=== PATIENT | male | born 1975 | race Caucasian/White ===

== ENCOUNTER 2019-01-10 19:03 | Emergency (ER) | payer OTHER, SELFPAY ==
[2019-01-10 19:09] VITALS: BP 165/91; PULSE 79; RESP 20; TEMP 37.5; O2SAT 97
--- NOTE | 2019-01-10 19:52 | W.ED.GENAD ---
Discharge Plan Disposition Patient Disposition: HOME Condition: Stable Discharge Details Chief Complaint: DentalOral Clinical Impression: Abscess, dental Primary Care Provider: Antonia,Local ED Provider: Chu Jacob Home Meds and New Rx's Prescriptions: New ibuprofen [IBU] 600 mg tablet 600 mg PO QID PRN (Reason: pain) Qty: 20 RF: 0 amoxicillin-pot clavulanate 875-125 mg tablet 1 tab PO BID Qty: 14 RF: 0 Discharge Instructions Instructions: Dental Abscess (ED) Additional Instructions: Return immediately if you have any worsening symptoms, high fevers, significant spread of swelling. Otherwise begin antibiotics first thing tomorrow morning and arrange a dental follow-up preferably in the next week. Discharge Data Discharge Date/Time-TO BE ENTERED AT DEPARTURE: 01/10/19 21:32 Medical Decision Making <Chu Jacob NP - Last Filed: 01/10/19 23:40> Patient presenting to the emergency department for chief complaint of toothache. Patient reports yesterday evening he had a slight toothache on the left lower jaw. But then over the past 24 hours he noticed significant swelling. Patient denies any fever chills, inability to swallow, difficulty breathing. Patient does have significant erythema and tenderness to tooth #18 with obvious swelling to the left lower jaw. There is some fluctuance noted to the area. Ultrasound was utilized to view the concern for abscess and a small abscess was noted. Did discuss with patient risk versus benefit of I&D drainage compared to just starting him on antibiotics. Initially patient stated that he did not want to have needle drainage done in this time and would prefer just anabolic therapy and that he would return for worsening of symptoms. Patient was given Augmentin but I did consult with Dr. Lazcano who is the overnight physician available given my concern of patient's condition worsening in the near term. After thorough discussion with Dr. Lazcano he was willing to have Dr. Lazcano perform needle drainage of the abscess. Please see attached note for the procedure Patient placed on Augmentin for 1 week and prescribed ibuprofen along with given limited supply of narcotic pain medication to go home with this evening. Return precautions were discussed with patient. After discussion of diagnosis and plan of care patient has no further needs, questions, or concerns and states clear understanding to return to the emergency department for any worsening symptoms. <Shayne Lazcano DO - Last Filed: 01/10/19 23:45> Time out was taken to identify the correct patient, procedure, and site. Risks and benefits were discussed with the patient and consent was obtained. Direct pressure was held over the area prior to the procedure to reduce painful injection. 5 cc?s of Lidocaine 1% and Bupivacaine 0.25% was instilled into the left jaw a ramus with a 27 gauge needle.notable analgesia was obtained. The patient tolerated the procedure. There were no complications. Following this an 18-gauge needle was inserted just lateral to the lower left molars and 1-2 cc of purulent material were exuded. Patient tolerated this well. No active bleeding. No signs of airway compromise. HPI <Chu Jacob NP - Last Filed: 01/10/19 23:40> General Mode of arrival: ambulatory. Date/Time Provider Initiated Documentation: 01/10/19 19:16. Limitations to Documentation: no limitations. Information obtained by: patient. History of Present Illness 43 year old M presents to the emergency department with the chief complaint of Dental pain, described as severe, Quality is described as sharp, and is localized to the mouth. and it has been constant. No relieving factors improve symptom(s), Patient notes no other symptoms.. Patient did receive the following treatments prior to arrival, NSAID Related Data Home Medications Medication Instructions Recorded Confirmed amoxicillin-pot clavulanate 1 tab PO BID #14 tab 01/10/19 ibuprofen [IBU] 600 mg PO QID PRN #20 tab 01/10/19 Previous Rx's Medication Instructions Recorded amoxicillin-pot clavulanate 1 tab PO BID #14 tab 01/10/19 ibuprofen [IBU] 600 mg PO QID PRN #20 tab 01/10/19 Allergies Allergy/AdvReac Type Severity Reaction Status Date / Time No Known Allergies Allergy Unverified 01/10/19 19:13 General Stated Complaint: DentalOral WONG: 4 Review of Systems <Chu Jacob NP - Last Filed: 01/10/19 23:40> Constitutional Denies chills and Denies fever(s) ENT Reports as per HPI, Denies change in voice, Reports dental pain, Denies dysphagia, Denies throat swelling and Denies tongue swelling Cardiovascular Denies chest pain and Denies dyspnea Respiratory Denies dyspnea, Denies stridor and Denies wheezing Gastrointestinal Denies abdominal pain, Denies dysphagia, Denies nausea and Denies vomiting Integumentary/Breasts Denies rash Allergic/Immunologic Denies throat swelling, Denies tongue swelling and Denies wheezing PFSH <Chu Jacob NP - Last Filed: 01/10/19 23:40> Surgical History SHOULDER SURGERY Social History Smoking and Tabacco status: Current every day Exam <Chu Jacob NP - Last Filed: 01/10/19 23:40> Const General: cooperative Orientation: alert, awake and oriented x3 Limitations: mental status not altered HENMT Head: normal to inspection, normocephalic, atraumatic and other (Moderate swelling to the left lower jaw that is obviously palpable) Ears: hearing grossly normal bilaterally, normal mastoids bilaterally and no periauricular adenopathy General nose exam: external nose normal Mouth: oropharynx normal, no drooling, no muffled voice, normal tongue and trismus (Mild) Teeth and gingiva: caries and other (Partially fractured tooth #18 base erythema) Throat: posterior oropharynx normal, tonsils normal and uvula midline Eyes General: appearance normal, both eyes and all related structures Pupils: PERRL Neck Neck: normal visual inspection, full ROM, no lymphadenopathy, no meningeal signs, trachea midline, supple, no anterior neck swelling and no midline deformity Resp Effort & Inspection: normal respiratory effort and able to speak in complete sentences Course <Chu Jacob NP - Last Filed: 01/10/19 23:40> Vital Signs Temperature 37.5 C 01/10/19 19:09 Pulse 79 01/10/19 19:09 Respiratory Rate 20 01/10/19 19:09 Blood Pressure 165/91 H 01/10/19 19:09 Pulse Oximetry 97 01/10/19 19:09 Temperature 37.5 C 01/10/19 19:09 Temperature Source Temporal Artery Scan 01/10/19 19:09 Pulse 79 01/10/19 19:09 Respiratory Rate 20 01/10/19 19:09 Respiratory Effort 01/10/19 19:09 Blood Pressure 165/91 H 01/10/19 19:09 Blood Pressure Position Sitting 01/10/19 19:09 Pulse Oximetry 97 01/10/19 19:09 Oxygen Delivery Method Room Air 01/10/19 19:09 Oxygen Flow Rate 0 01/10/19 19:09 Pain Level 10 01/10/19 19:09
--- NOTE | 2019-01-10 19:55 | ED.GENADUL_ITS ---
Discharge Plan Disposition Patient Disposition: HOME Condition: Stable Discharge Details Chief Complaint: DentalOral Clinical Impression: Abscess, dental Primary Care Provider: Antonia,Local ED Provider: Chu Jacob Home Meds and New Rx's Prescriptions: New ibuprofen [IBU] 600 mg tablet 600 mg PO QID PRN (Reason: pain) Qty: 20 RF: 0 amoxicillin-pot clavulanate 875-125 mg tablet 1 tab PO BID Qty: 14 RF: 0 Discharge Instructions Instructions: Dental Abscess (ED) Additional Instructions: Return immediately if you have any worsening symptoms, high fevers, significant spread of swelling. Otherwise begin antibiotics first thing tomorrow morning and arrange a dental follow-up preferably in the next week. Discharge Data Discharge Date/Time-TO BE ENTERED AT DEPARTURE: 01/10/19 21:32 Medical Decision Making <Chu Jacob NP - Last Filed: 01/10/19 23:40> Patient presenting to the emergency department for chief complaint of toothache. Patient reports yesterday evening he had a slight toothache on the left lower jaw. But then over the past 24 hours he noticed significant swelling. Patient denies any fever chills, inability to swallow, difficulty breathing. Patient does have significant erythema and tenderness to tooth #18 with obvious swelling to the left lower jaw. There is some fluctuance noted to the area. Ultrasound was utilized to view the concern for abscess and a small abscess was noted. Did discuss with patient risk versus benefit of I&D drainage compared to just starting him on antibiotics. Initially patient stated that he did not want to have needle drainage done in this time and would prefer just anabolic therapy and that he would return for worsening of symptoms. Patient was given Augmentin but I did consult with Dr. Lazcano who is the overnight physician available given my concern of patient's condition worsening in the near term. After thorough discussion with Dr. Lazcano he was willing to have Dr. Lazcano perform needle drainage of the abscess. Please see attached note for the procedure Patient placed on Augmentin for 1 week and prescribed ibuprofen along with given limited supply of narcotic pain medication to go home with this evening. Return precautions were discussed with patient. After discussion of diagnosis and plan of care patient has no further needs, questions, or concerns and states clear understanding to return to the emergency department for any worsening symptoms. <Shayne Lazcano DO - Last Filed: 01/10/19 23:45> Time out was taken to identify the correct patient, procedure, and site. Risks and benefits were discussed with the patient and consent was obtained. Direct pressure was held over the area prior to the procedure to reduce painful injection. 5 cc?s of Lidocaine 1% and Bupivacaine 0.25% was instilled into the left jaw a ramus with a 27 gauge needle.notable analgesia was obtained. The patient tolerated the procedure. There were no complications. Following this an 18-gauge needle was inserted just lateral to the lower left molars and 1-2 cc of purulent material were exuded. Patient tolerated this well. No active bleeding. No signs of airway compromise. HPI <Chu Jacob NP - Last Filed: 01/10/19 23:40> General Mode of arrival: ambulatory . Date/Time Provider Initiated Documentation: 01/10/19 19:16 . Limitations to Documentation: no limitations . Information obtained by: patient . History of Present Illness 43 year old M presents to the emergency department with the chief complaint of Dental pain, described as severe, Quality is described as sharp, and is localized to the mouth. and it has been constant. No relieving factors improve symptom(s), Patient notes no other symptoms.. Patient did receive the following treatmen ts prior to arrival, NSAID Related Data Home Medications Medication Instructions Recorded Confirmed amoxicillin-pot clavulanate 1 tab PO BID #14 tab 01/10/19 ibuprofen [IBU] 600 mg PO QID PRN #20 tab 01/10/19 Previous Rx's Medication Instructions Recorded amoxicillin-pot clavulanate 1 tab PO BID #14 tab 01/10/19 ibuprofen [IBU] 600 mg PO QID PRN #20 tab 01/10/19 Allergies Allergy/AdvReac Type Severity Reaction Status Date / Time No Known Allergies Allergy Unverified 01/10/19 19:13 General Stated Complaint: DentalOral WONG: 4 Review of Systems <Chu Jacob NP - Last Filed: 01/10/19 23:40> Constitutional Denies chills and Denies fever(s) ENT Reports as per HPI, Denies change in voice, Reports dental pain, Denies dysph agia, Denies throat swelling and Denies tongue swelling Cardiovascular Denies chest pain and Denies dyspnea Respiratory Denies dyspnea, Denies stridor and Denies wheezing Gastrointestinal Denies abdominal pain, Denies dysphagia, Denies nausea and Denies vomiting Integumentary/Breasts Denies rash Allergic/Immunologic Denies throat swelling, Denies tongue swelling and Denies wheezing PFSH <Chu Jacob NP - Last Filed: 01/10/19 23:40> Surgical History SHOULDER SURGERY Social History Smoking and Tabacco status: Current every day Exam <Chu Jacob NP - Last Filed: 01/10/19 23:40> Const General: cooperative Orientation: alert, awake and oriented x3 Limitations: mental status not altered HENMT Head: normal to inspection, normocephalic, atraumatic and other (Moderate swelling to the left lower jaw that is obviously palpable) Ears: hearing grossly normal bilaterally, normal mastoids bilaterally and no periauricular adenopathy General nose exam: external nose normal Mouth: oropharynx normal, no drooling, no muffled voice, normal tongue and trismus (Mild) Teeth and gingiva: caries and other (Partially fractured tooth #18 base er ythema) Throat: posterior oropharynx normal, tonsils normal and uvula midline Eyes General: appearance normal, both eyes and all related structures Pupils: PERRL Neck Neck: normal visual inspection, full ROM, no lymphadenopathy, no meningeal signs, trachea midline, supple, no anterior neck swelling and no midline deformity Resp Effort & Inspection: normal respiratory effort and able to speak in complete sentences Course <Chu Jacob NP - Last Filed: 01/10/19 23:40> Vital Signs Temperature 37.5 C 01/10/19 19:09 Pulse 79 01/10/19 19:09 Respiratory Rate 20 01/10/19 19:09 Blood Pressure 165/91 H 01/10/19 19:09 Pulse Oximetry 97 01/10/19 19:09 Temperature 37.5 C 01/10/19 19:09 Temperature Source Temporal Artery Scan 01/10/19 19:09 Pulse 79 01/10/19 19:09 Respiratory Rate 20 01/10/19 19:09 Respiratory Effort 01/10/19 19:09 Blood Pressure 165/91 H 01/10/19 19:09 Blood Pressure Position Sitting 01/10/19 19:09 Pulse Oximetry 97 01/10/19 19:09 Oxygen Delivery Method Room Air 01/10/19 19:09 Oxygen Flow Rate 0 01/10/19 19:09 Pain Level 10 01/10/19 19:09
[2019-01-10] MEDS: Amoxicillin 875/Clav. 125 TAB PO (19:58)
[2019-01-10] MEDS: Ketorolac 60 MG/2 ML VIAL IM (19:58)
[2019-01-10] MEDS: HYDROcodone 5/Acetaminophen 325 TAB PO ×2 (21:26→21:28)
[2019-01-10] MEDS: Bupivacaine 0.5% Pres-Free 30 ML VIAL (21:29)
[2019-01-10 21:51] VITALS: BP 150/86; PULSE 82; RESP 20; TEMP 37.5; O2SAT 97
== END 2019-01-10 21:32 | disposition home or self-care (01) ==
PROVIDERS: Emergency Provider Nurse Practitioner Family
DX: K04.7 Periapical abscess without sinus (principal)
CPT/HCPCS: 10160; J1885

== ENCOUNTER 2019-01-11 19:03 | Emergency (ER) | payer OTHER, SELFPAY ==
[2019-01-11 19:08] VITALS: BP 141/87; PULSE 77; RESP 16; TEMP 36.6; O2SAT 97
[2019-01-11] MEDS: AMPICILLIN/SULBACTAM 3 GM in Normal Saline 100 ML IVPB (19:47)
[2019-01-11] MEDS: MORPHine 10 MG/ML VIAL 4 MG IVP (19:51)
[2019-01-11 20:00] LABS: Abs Immature Grans 0.02 k/cumm (0.0-0.09); Absolute Basophil Count 0.03 k/cumm (0.0-0.2); Absolute Eosinophil Count 0.13 k/cumm (0.0-0.7); Absolute Lymphocyte Count 3.53 k/cumm (1.2-3.4); Absolute Monocyte Count 0.93 k/cumm (0.11-0.7); Absolute Neutrophil Count 8.63 k/cumm (1.2-6.7); Basophils % 0.2; HCT 44.7 % (40.0-50.0); HGB 14.5 g/dL (13.5-17.5); Immature Grans % 0.2; Lymphocytes % 26.6; Mean Corp. HGB Concentration 32.4 g/dL (32.0-36.0); Mean Corpuscular Hemoglobin 29.1 pg (27.0-33.0); Mean Corpuscular Volume 89.8 fL (80-95); Platelet Count 284 x1000/uL (130-400); RBC 4.98 m/cumm (4.50-6.00); White Blood Cell Count 13.27 k/cumm (4.4-10.8)
[2019-01-11 20:10] LABS: ALT 23 U/L (12-78); AST 20 U/L (15-37); Albumin 3.2 g/dL (3.4-5.0); Alkaline Phosphatase 110 U/L (46-116); Anion Gap 8.4 mmol/L (3-11); BUN 14 mg/dL (7-18); Bilirubin, Total 0.3 mg/dL (0.2-1.0); CO2 30.6 mmol/L (21.0-32.0); CREATININE 1.08 mg/dL (0.70-1.30); Calcium 8.5 mg/dL (8.5-10.1); Chloride 105 mmol/L (98-107); Glucose 93 mg/dL (70-100); Potassium 3.9 mmol/L (3.5-5.1); Sodium 144 mmol/L (136-145); Total Protein 7.8 g/dL (6.4-8.2)
[2019-01-11] MEDS: Omnipaque 350 MG/ML 100 ML BTL IJ (20:21)
[2019-01-11] MEDS: Normal Saline Flush 10 ML SYR IVP (20:22)
[2019-01-11 20:23] VITALS: PULSE 70; RESP 18; TEMP 37.1; O2SAT 100
--- NOTE | 2019-01-11 20:23 | DI.CT_ITS ---
SYMPTOMS/DIAGNOSIS: LEFT JAW PAIN, CONCERN FOR ABSCESS CT SCAN OF THE NECK: CT scan of the neck was performed following the uneventful administration of intravenous contrast material. There is soft tissue swelling seen in the left face and neck overlying the mandible. There is a question of a small fluid collection measuring approximately 1 cm in size lateral to the left mandible best appreciated on the coronal views (series 5, image 10). This may represent a small abscess. Mildly enlarged lymph nodes are seen in the left submandibular region and left neck which are likely reactive. The remaining portions of the nasopharynx, oropharynx, hypopharynx and larynx are unremarkable. The thyroid gland appears grossly unremarkable. There is a mucous retention cyst or polyp in the left maxillary sinus. The remaining visualized paranasal sinuses are clear. The mastoid air cells are well pneumatized. No acute findings are seen in the lung apices. IMPRESSION: Left facial cellulitis. Question of an early 1 cm abscess to the left of the left maxilla. Dental evaluation should be considered.
[2019-01-11] MEDS: HYDROmorphone 2 MG/ML VIAL 0.5 MG IVP ×2 (21:05→21:49)
--- NOTE | 2019-01-11 21:05 | DI.VRAD_ITS ---
EXAM: CT Neck With Contrast EXAM DATE/TIME: 01/11/2019 7:47 PM CLINICAL HISTORY: 43 years old, male; Pain; Other: Left jaw pain; Patient HX: Left jaw pain. Concern for abcess TECHNIQUE: Axial computed tomography images of the neck with intravenous contrast. All CT scans at this facility use at least one of these dose optimization techniques: automated exposure control; mA and/or kV adjustment per patient size (includes targeted exams where dose is matched to clinical indication); or iterative reconstruction. Coronal and sagittal reformatted images were created and reviewed. CONTRAST: 100 ml of omni 350 administered intravenously. COMPARISON: No relevant prior studies available. FINDINGS: Sinuses: mucous retention cyst in the left maxillary sinus. Oropharynx: There is multifocal dental disease. Recommend complete dental evaluation. No significant tonsillar enlargement. Possible small abscess along the lateral aspect of the left mandible best seen on coronal series 5 image 10 measuring approximately 1 cm. Larynx: Normal. Normal epiglottis. Submandibular/Parotid glands: Normal. Glands are normal in size. Thyroid: Normal. No enlarged or calcified nodules. Lymph nodes: Normal. No lymphadenopathy. Lungs: Normal as visualized. Vasculature: No acute findings. Bones/joints: Normal. No acute fracture. Soft tissues: Lower left facial swelling noted with no definite abscess. IMPRESSION: Lower left facial cellulitis with probable early abscess lateral to the the left maxilla. There is multifocal dental disease. Recommend complete dental evaluation. Dictated and Authenticated by: Anny Young MD. Ordering:MIRELA Sage MD
[2019-01-11 21:07] VITALS: PULSE 66; RESP 14; O2SAT 99
[2019-01-11] MEDS: CLINDAMYCIN 900 MG/50 ML BAG 50 MG IVPB (21:49)
--- NOTE | 2019-01-11 21:51 | ED.GENADUL_ITS ---
Discharge Plan Disposition Patient Disposition: HOME Condition: Stable Discharge Details Chief Complaint: Recheck Clinical Impression: Dental abscess Primary Care Provider: Antonia,Local ED Provider: Chu Jacob Home Meds and New Rx's Prescriptions: New clindamycin HCl 150 mg capsule 450 mg PO TID 7 Days Qty: 63 RF: 0 Continued ibuprofen [IBU] 600 mg tablet 600 mg PO QID PRN (Reason: pain) Qty: 20 RF: 0 amoxicillin-pot clavulanate 875-125 mg tablet 1 tab PO BID Qty: 14 RF: 0 Discharge Instructions Instructions: Dental Abscess (ED) Additional Instructions: Return immediately to the emergency department for any worsening symptoms, fever chills, difficulty swallowing, or swelling to your lips tongue or mouth. Otherwise continue to take previously prescribed antibiotic along with your new antibiotic tomorrow morning. Continue to take your medication as prescribed it is strongly encourage that you obtain a dental follow-up within the week for reassessment. You will need to obtain a follow-up appointment with a dentist in the next week. Referrals: Primary Care Provider [Outside] (If you cannot obtain a dental appointment next week please follow-up with a primary care provider for reassessment) Discharge Data Discharge Date/Time-TO BE ENTERED AT DEPARTURE: 01/11/19 22:57 Medical Decision Making Patient representing to the emergency department for chief complaint of recheck of dental swelling. Patient states that symptoms have not improved. Patient was seen in the emergency department yesterday by myself and had I&D drainage of dental abscess done by Dr. Lazcano. Patient states no improvement of symptoms and continued pain and swelling. Patient denies any fever chills, difficulty breathing, inability to swallow, swelling of lips tongue or mouth. Physical exam is still persistent with significant edema and swelling to left lower jaw with erythema surrounding the base of tooth #18 which is partially fractured. No signs of Kameron's angina, significant lymphadenopathy, no airway compromise noted. Given the patient is returning I do feel that labs and CT scan is warranted. Review of labs shows moderate leukocytosis with some evidence of shift otherwise nondiagnostic labs. Pending results patient given Unasyn and morphine. Patient continued to have discomfort was given additional doses of morphine which continued to not relieve discomfort so patient given total of 2 additional doses of 0.5 of hydromorphone which finally did resolve and significantly reduce patient's discomfort. Pending CT imaging patient given dose of clindamycin due to him stating that he would not want to be admitted and would rather continue outpatient therapy. Patient was offered re-exploration and incident incision or drainage or needle exploration to attempt to remove any further purulent drainage that was noted on yesterday's exam but he adamantly refused wanting any further procedure performed. Review of radiological imaging and radiologist interpretation shows no definitive abscess but continued localized swelling and evidence of cellulitic changes. Patient reassessed and states controlled pain. Patient was given IV ketorolac pending discharge along with provided with 3 Percocet after thorough discussion of opiate use and risking along with instructions for patient to not take pain medication before 4 AM due to the significant amount of doses he received in the emergency department. Patient states clear understanding of this and son was also present during this discussion. Patient states clear understanding of risk of narcotic use. Return precautions were thoroughly discussed with patient. Patient was given prescription for clindamycin to add to the Augmentin that he is already on. Patient was informed that he should take probiotics and return precautions were discussed including for severe diarrhea symptoms. Patient strongly encouraged to follow-up with dentist within the next week which he said he would arrange. Patient was given a card for care management to obtain assistance if he has any problems with getting a follow-up appointment. After discussion of diagnosis and plan of care patient has no further needs, questions, or concerns and states clear understanding to return to the emergency department for any worsening symptoms. HPI General Mode of arrival: ambulatory . Date/Time Provider Initiated Documentation: 01/11/19 19:27 . Limitations to Documentation: no limitations . Information obtained by: RN notes reviewed . History of Present Illness 43 year old M presents to the emergency department with the chief complaint of Recheck of dental infection, described as severe and similar to prior episodes, with intensity rated at 9. Quality is described as sharp, and is localized to the face. and it has been constant. No relieving factors improve symptom(s), Patient notes no other symptoms.. Related Data Home Medications Medication Instructions Recorded Confirmed amoxicillin-pot clavulanate 1 tab PO BID #14 tab 01/10/19 01/11/19 ibuprofen [IBU] 600 mg PO QID PRN #20 tab 01/10/19 01/11/19 clindamycin HCl 450 mg PO TID 7 Days #63 cap 01/11/19 Previous Rx's Medication Instructions Recorded amoxicillin-pot clavulanate 1 tab PO BID #14 tab 01/10/19 ibuprofen [IBU] 600 mg PO QID PRN #20 tab 01/10/19 clindamycin HCl 450 mg PO TID 7 Days #63 cap 01/11/19 Allergies Allergy/AdvReac Type Severity Reaction Status Date / Time No Known Allergies Allergy Unverified 01/11/19 19:13 General Stated Complaint: Recheck WONG: 4 Review of Systems Constitutional Denies chills and Denies fever(s) ENT Reports as per HPI, Denies change in voice, Reports dental pain, Denies dysphagia, Denies throat swelling and Denies tongue swelling Cardiovascular Denies chest pain and Denies dyspnea Respiratory Denies dyspnea, Denies stridor and Denies wheezing Gastrointestinal Denies abdominal pain, Denies dysphagia, Denies nausea and Denies vomiting Integumentary/Breasts Denies rash Allergic/Immunologic Denies throat swelling, Denies tongue swelling and Denies wheezing PFS Social History Smoking and Tabacco status: Current every day Exam Const General: cooperative Orientation: alert, awake and oriented x3 Limitations: mental status not altered [facility] Head: normal to inspection, normocephalic, atraumatic and other (Swelling noted to left lower jaw) Ears: hearing grossly normal bilaterally, normal mastoids bilaterally and no periauricular adenopathy General nose exam: external nose normal Mouth: oropharynx normal, no drooling, no muffled voice, normal tongue and trismus (Mild) Teeth and gingiva: caries, poor dentition and other (Partially fractured tooth #18 erythematous base) Throat: posterior oropharynx normal, tonsils normal and uvula midline Eyes General: appearance normal, both eyes and all related structures Pupils: PERRL Neck Neck: normal visual inspection, full ROM, no lymphadenopathy, no meningeal signs, trachea midline, supple, no anterior neck swelling and no midline deformity Resp Effort & Inspection: normal respiratory effort and able to speak in complete sentences Cardio Rate: regular rate Rhythm: regular rhythm Course Vital Signs Temperature 36.6 C 01/11/19 19:08 Pulse 77 01/11/19 19:08 Respiratory Rate 16 01/11/19 19:08 Blood Pressure 141/87 H 01/11/19 19:08 Pulse Oximetry 97 01/11/19 19:08 Temperature 37.1 C 01/11/19 20:23 Temperature Source Temporal Artery Scan 01/11/19 20:23 Pulse 66 01/11/19 21:07 Respiratory Rate 14 01/11/19 21:07 Respiratory Effort Non-Labored 01/11/19 19:11 Blood Pressure 141/87 H 01/11/19 19:08 Blood Pressure Position Sitting 01/11/19 19:08 Pulse Oximetry 99 01/11/19 21:07 Oxygen Delivery Method Room Air 01/11/19 21:07 Oxygen Flow Rate 0 01/11/19 21:07 Pain Level 8 01/11/19 20:23 Lab/Test Results Lab/Test Results: Laboratory Tests Range/Units 01/11/19 01/11/19 19:50 19:50 WBC (4.4-10.8) k/cumm 13.27 H RBC (4.50-6.00) m/cumm 4.98 Hgb (13.5-17.5) g/dL 14.5 Hct (40.0-50.0) % 44.7 MCV (80-95) fL 89.8 MCH (27.0-33.0) pg 29.1 MCHC (32.0-36.0) g/dL 32.4 RDW (11.8-14.1) % 14.0 Plt Count (130-400) x1000/uL 284 MPV (8.0-11.0) fL 9.0 Immature Gran % 0.2 Neutrophils % 65.0 Lymphocytes % 26.6 Monocytes % 7.0 Eosinophils % 1.0 Basophils % 0.2 Absolute Neutrophils (1.2-6.7) k/cumm 8.63 H Absolute Lymphocytes (1.2-3.4) k/cumm 3.53 H Absolute Monocytes (0.11-0.7) k/cumm 0.93 H Absolute Eosinophils (0.0-0.7) k/cumm 0.13 Absolute Basophils (0.0-0.2) k/cumm 0.03 Sodium (136-145) mmol/L 144 Potassium (3.5-5.1) mmol/L 3.9 Chloride (98-107) mmol/L 105 Carbon Dioxide (21.0-32.0) mmol/L 30.6 Anion Gap (3-11) mmol/L 8.4 BUN (7-18) mg/dL 14 Creatinine (0.70-1.30) mg/dL 1.08 Estimated GFR/1.73 m2 (mL/min/1.73m2) >= 60.00 Glucose (70-100) mg/dL 93 Calcium (8.5-10.1) mg/dL 8.5 Total Bilirubin (0.2-1.0) mg/dL 0.3 AST (15-37) U/L 20 ALT (12-78) U/L 23 Alkaline Phosphatase (46-116) U/L 110 Total Protein (6.4-8.2) g/dL 7.8 Albumin (3.4-5.0) g/dL 3.2 L
[2019-01-11] MEDS: Ketorolac 30 MG/ML VIAL IVP (21:54)
[2019-01-11 21:56] VITALS: BP 164/90; PULSE 61; RESP 18; O2SAT 96
[2019-01-11 22:47] VITALS: BP 140/70; PULSE 70; RESP 18; O2SAT 96
[2019-01-11] MEDS: oxyCODONE 5 mg/Acetaminophen 325 mg TAB 3 TAB PO (23:00)
== END 2019-01-11 22:57 | disposition home or self-care (01) ==
PROVIDERS: Emergency Provider Nurse Practitioner Family
DX: K12.2 Cellulitis and abscess of mouth (principal)
CPT/HCPCS: 36415; 70491; 80053; 96365; 96367; 96375; 96376; 99285; 85025; 99284; J0295; J1885; J3490

== ENCOUNTER 2019-08-13 20:09 | Emergency (ER) | payer OTHER, SELFPAY ==
[2019-08-13 20:23] VITALS: BP 165/92; PULSE 101; RESP 16; TEMP 37.2; O2SAT 94
--- NOTE | 2019-08-13 21:12 | W.ED.GENAD ---
Discharge Plan Disposition Patient Disposition: HOME Discharge Details Chief Complaint: DentalOral Clinical Impression: Dental infection, Elevated blood pressure reading, Smoker Primary Care Provider: Julio Chavez ED Provider: Anton Huang Home Meds and New Rx's Prescriptions: New penicillin V potassium 500 mg tablet 500 mg PO QID Qty: 27 RF: 0 Continued ibuprofen [IBU] 600 mg tablet 600 mg PO QID PRN (Reason: pain) Qty: 20 RF: 0 Discharge Instructions Instructions: How to Stop Smoking (ED), Dental Abscess (ED) Additional Instructions: Take penicillin as prescribed. Please follow-up with your dentist. Call tomorrow to arrange timely follow-up. Please follow-up with your primary care physician. Be sure to discuss your elevated blood pressure. Please also discuss smoking cessation. Return to the ER for any worsening or new concerning symptoms. Referrals: Julio Chavez MD [Primary Care Provider] - Medical Decision Making 44-year-old male here with dental pain, suspect infection tooth #17. No fluctuance to warrant incision and drainage. Patient has had a dental infection in this area in the past requiring antibiotics. Plan to treat with penicillin. I offered periapical dental block for pain control and patient refused. Patient was given Tylenol for pain. I discussed with him the absolute need to follow-up with his dentist. He does now plan to follow-up with his dentist as recommended. I also discussed with the patient smoking cessation. He is motivated. He does plan to follow-up with his primary care physician about this. Usual and customary discharge instructions were provided. HPI General Mode of arrival: ambulatory. Date/Time Provider Initiated Documentation: 08/13/19 21:05. Limitations to Documentation: no limitations. Information obtained by: patient. HPI Narrative: 44-year-old male here with dental infection. Patient notes he fractured his left lower molar about 2 weeks ago and today he has developed pain and swelling in the tooth. He is concerned that the tooth may be infected. Symptoms are moderate. No modifiers. No associated fever. Related Data Home Medications Medication Instructions Recorded Confirmed ibuprofen [IBU] 600 mg PO QID PRN #20 tab 01/10/19 08/13/19 penicillin V potassium 500 mg PO QID #27 tab 08/13/19 Previous Rx's Medication Instructions Recorded ibuprofen [IBU] 600 mg PO QID PRN #20 tab 01/10/19 penicillin V potassium 500 mg PO QID #27 tab 08/13/19 Allergies Allergy/AdvReac Type Severity Reaction Status Date / Time No Known Allergies Allergy Unverified 08/13/19 20:25 General Stated Complaint: DentalOral WONG: 4 Review of Systems Constitutional Constitutional: Denies fever(s) ENT Ears, Nose, Mouth, and Throat: Reports as per HPI [facility] Medical History Alcohol abuse (Chronic) Kidney stone (Chronic) Surgical History SHOULDER SURGERY Social History Smoking/Tobacco Use Status: Current every day Drug use: Never Do you feel safe in your relationship?: Yes Exam Const General: cooperative and no acute distress HENMT Head: normocephalic and atraumatic Face and sinus: normal facial exam Mouth: moist mucous membranes Teeth and gingiva: poor dentition (Fracture of tooth #19,18 and 17 appear chronic) and other (Tender gumline adjacent to tooth #17 with no fluctuance) Throat: posterior oropharynx normal Neck Neck: trachea midline and supple Resp Auscultation: clear to auscultation bilaterally, no rales, no rhonchi and no wheezes Cardio Jugular venous pressure: no JVD Rate: regular rate and not tachycardic Rhythm: regular rhythm Course Vital Signs Vital signs: Vital Signs Temperature 37.2 C 08/13/19 20:23 Pulse 101 H 08/13/19 20:23 Respiratory Rate 16 08/13/19 20:23 Blood Pressure 165/92 H 08/13/19 20:23 Pulse Oximetry 94 L 08/13/19 20:23 Temperature 37.2 C 08/13/19 20:23 Temperature Source Skin 08/13/19 20:23 Pulse 101 H 08/13/19 20:23 Respiratory Rate 16 08/13/19 20:23 Respiratory Effort Non-Labored 08/13/19 20:26 Blood Pressure 165/92 H 08/13/19 20:23 Pulse Oximetry 94 L 08/13/19 20:23 Pain Level 6 08/13/19 20:23
[2019-08-13] MEDS: Acetaminophen 325 MG TAB 650 MG PO (21:24)
[2019-08-13] MEDS: Penicillin V POTASSIUM 500 MG TAB PO ×2 (21:25)
== END 2019-08-13 21:30 | disposition home or self-care (01) ==
PROVIDERS: Emergency Provider Student in an Organized Health Care Education/Training Program; PCP General Practice
DX: K04.7 Periapical abscess without sinus (principal); F17.210 Nicotine dependence, cigarettes, uncomplicated; R03.0 Elevated blood-pressure reading, without diagnosis of hypertension
CPT/HCPCS: 99283

== ENCOUNTER 2019-10-15 20:43 | Emergency (ER) | payer OTHER, SELFPAY ==
[2019-10-15 20:48] VITALS: BP 149/75; PULSE 72; RESP 16; TEMP 37.1; O2SAT 98
--- NOTE | 2019-10-15 21:26 | ED.GENADUL_ITS ---
Discharge Plan Disposition Patient Disposition: AGAINST MEDICAL ADVICE Condition: Stable Discharge Details Chief Complaint: Orthopedic Clinical Impression: Finger infection Primary Care Provider: Julio Chavez ED Provider: Radha Huang Home Meds and New Rx's Prescriptions: New cephalexin [Keflex] 500 mg capsule 500 mg PO QID Qty: 40 RF: 0 Continued ibuprofen [IBU] 600 mg tablet 600 mg PO QID PRN (Reason: pain) Qty: 20 RF: 0 Discharge Instructions Instructions: Cephalexin (By mouth) Additional Instructions: You have elected to leave the emergency department AGAINST MEDICAL ADVICE. The risks of doing so are or permanent disability. You may return to the emergency department at any time if you change your mind. Please return immediately to the emergency department he develop any new or worsening symptoms or if you become otherwise concerned. It is extremely important that you follow-up at the orthopedic clinic at 9 AM tomorrow, and that you take your prescribed antibiotics every 6 hours. Stand Alone Forms: Work Release Referrals: South Garcia MD [ [facility] STAFF PHYSICIAN] - Medical Decision Making Diallo Davey is a 44-year-old man with a history of ADHD and kidney stones who presents the emergency department with right index finger pain, redness, swelling, and limited range of motion secondary to pain since yesterday with no known inciting factors. On exam patient is well and nontoxic appearing but does appear uncomfortable. Right index finger erythematous and edematous throughout, held in flexion with severe pain on passive extension, digit is homogenously tender throughout without tenderness of the MCP joint. Concern for possible flexor tenosynovitis. Exam/history is not consistent with sepsis. plan for x- ray, screening labs, Ortho consult, IV cefazolin, IV morphine for pain. I discussed patient with Dr. Garcia of orthopedic surgery, who will admit the patient. After plan for admission, patient stated that he had to leave the emergency department in order to speak with his boss first thing in the morning. He is concerned that he will be fired from his job if he is not present tomorrow a.m. I had a lengthy discussion with the patient regarding risks of leaving at this time AGAINST MEDICAL ADVICE, including or permanent disability. Patient verbalized understanding of the risks and continued to refuse admission. Patient states that he will return to the emergency department as soon as possi ble in the morning to continue his evaluation and treatment. I relayed this information to Dr. Garcia of orthopedics, who requested patient go directly to his outpatient office at 9 AM tomorrow morning, and that the patient be given a prescription for Keflex to take every 6 hours. I discussed this plan with the patient, and reiterated that he may return to the emergency department anytime if he changes his mind, and to return immediately for any worsening symptoms. Patient given 1 take-home dose of Keflex to take at 4 AM. I had a lengthy discussion with the patient regarding return to emergency department precautions, importance of outpatient follow-up tomorrow morning at 9 AM, and home care. Patient verbalized understanding of the plan was amenable. All questions were answered. Patient was discharged home with clear plan for outpatient follow-up. Medical Records Medical records reviewed: Yes I reviewed the patient's medical records. Imaging Data Radiologic Study: Attestation: I personally reviewed and interpreted this imaging study as follows: Radiologist's impression: Exam: XR Right Finger(s) Exam date and time: 10/15/2019 9:25 PM Age: 44 years old Clinical history: Finger(s); Right; Patient HX: Pain, swelling, no trauma TECHNIQUE: Imaging protocol: XR Right fingers. Views: Minimum 2 views. COMPARISON: CR RIGHT HAND COMPLETE 05/25/2018 3:34 AM FINDINGS: Bones/joints: No significant osseous abnormalities identified. Soft tissues: There is soft tissue swelling present about the finger. IMPRESSION: Soft tissue swelling. No significant osseous abnormality is identified. Lab Data Lab results reviewed: Yes I reviewed the patient's lab results. Labs: 10/15/19 21:50 Blood Blood Culture - Pending 10/15/19 21:40 Blood Blood Culture - Pending Laboratory Tests Range/Units 10/15/19 10/15/19 21:40 21:40 WBC (4.4-10.8) k/cumm 13.39 H RBC (4.50-6.00) m/cumm 4.55 Hgb (13.5-17.5) g/dL 13.7 Hct (40.0-50.0) % 41.0 MCV (80-95) fL 90.1 MCH (27.0-33.0) pg 30.1 MCHC (32.0-36.0) g/dL 33.4 RDW (11.8-14.1) % 13.2 Plt Count (130-400) x1000/uL 316 MPV (8.0-11.0) fL 8.8 Immature Gran % 0.3 Neutrophils % 59.5 Lymphocytes % 30.2 Monocytes % 8.0 Eosinophils % 1.6 Basophils % 0.4 Absolute Neutrophils (1.2-6.7) k/cumm 7.97 H Absolute Lymphocytes (1.2-3.4) k/cumm 4.04 H Absolute Monocytes (0.11-0.7) k/cumm 1.07 H Absolute Eosinophils (0.0-0.7) k/cumm 0.21 Absolute Basophils (0.0-0.2) k/cumm 0.05 ESR (0-15) mm/hr 19 H Sodium (136-145) mmol/L 138 Potassium (3.5-5.1) mmol/L 4.3 Chloride (98-107) mmol/L 102 Carbon Dioxide (21.0-32.0) mmol/L 29.1 Anion Gap (3-11) mmol/L 6.9 BUN (7-18) mg/dL 8 Creatinine (0.70-1.30) mg/dL 0.81 Estimated GFR/1.73 m2 (mL/min/1.73m2) >= 60.00 Glucose (74-106) mg/dL 80 Calcium (8.5-10.1) mg/dL 9.1 C-Reactive Protein (0.0-0.3) mg/dL 0.75 H HPI General Mode of arrival: ambulatory . Date/Time Provider Initiated Documentation: 10/15/19 20:56 . Limitations to Documentation: no limitations . Information obtained by: patient, RN notes reviewed and old records reviewed . HPI Narrative: Diallo Davey is a 44-year-old man with a history of kidney stones, ADHD presenting to the emergency department with finger pain. Patient reports that yesterday he noticed that his right index finger was painful with movement, seemed red and swollen. Patient reports that pain swelling and redness have worsened since yesterday. Patient states that he has severe pain with any movement of the finger. No known trauma to the finger. 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 He denies any other pain or injury, denies fevers, denies other rash, denies vomiting, denies diarrhea. Patient reports tetanus within the last 10 years. Never had similar symptoms in the past. Related Data Home Medications Medication Instructions Recorded Confirmed ibuprofen [IBU] 600 mg PO QID PRN #20 tab 01/10/19 10/15/19 cephalexin [Keflex] 500 mg PO QID #40 cap 10/15/19 Previous Rx's Medication Instructions Recorded ibuprofen [IBU] 600 mg PO QID PRN #20 tab 01/10/19 cephalexin [Keflex] 500 mg PO QID #40 cap 10/15/19 Allergies Allergy/AdvReac Type Severity Reaction Status Date / Time No Known Allergies Allergy Unverified 10/15/19 20:50 General Stated Complaint: Orthopedic WONG: 4 Review of Systems Narrative: Constitutional: denies fevers Eyes: denies eye pain ENT: denies facial pain, dental pain, sore throat Cardiovascular: denies chest pain Respiratory: denies SOB, cough GI: denies abdominal pain, vomiting, diarrhea : denies flank pain MSK: denies back pain, neck pain, right index finger painful throughout Skin: denies rash other than redness to right index finger Neuro: denies headaches, numbness, weakness PFSH Medical History Alcohol abuse (Chronic) Kidney stone (Chronic) Social History Smoking/Tobacco Use Status: Current every day Alcohol Intake: never Drug use: Never Do you feel safe at home: Yes Do you feel safe in your relationship?: Yes Exam Narrative Exam Narrative: Constitutional: well and [id number], pleasant, conversing normally HENT: head atraumatic/normocephalic/normal inspection, mucous membranes moist Eyes: conjunctiva normal, sclera normal, pupils 3mm b/l Neck: no stridor, normal ROM, trachea midline Resp: normal work of breathing Cardio: normal rate, normal rhythm Skin: warm, dry, normal color, no rash Neuro: alert, not altered, grossly non-focal, normal tone Ext: Scattered abrasions bilateral hands. Right index finger edematous, erythematous throughout, held in flexion. No tenderness to palpation of the MCP joint, however digit is tender throughout otherwise. Severe pain with attempted passive extension. Full painless range of motion of the other digits the right hand. Radial pulses intact and symmetric. Brisk cap refill and normal sensation of the right index finger. Psych: normal mood, normal affect, normal behavior Course Vital Signs Vital signs: Vital Signs Temperature 37.1 C 10/15/19 20:48 Pulse 72 10/15/19 20:48 Respiratory Rate 16 10/15/19 20:48 Blood Pressure 149/75 H 10/15/19 20:48 Pulse Oximetry 98 10/15/19 20:48 Temperature 37.1 C 10/15/19 20:48 Temperature Source Temporal Artery Scan 10/15/19 20:48 Pulse 72 10/15/19 20:48 Respiratory Rate 16 10/15/19 20:48 Respiratory Effort Non-Labored 10/15/19 20:48 Blood Pressure 149/75 H 10/15/19 20:48 Blood Pressure Position Sitting 10/15/19 20:48 Pulse Oximetry 98 10/15/19 20:48 Oxygen Delivery Method Room Air 10/15/19 20:48 Oxygen Flow Rate 0 10/15/19 20:48 Pain Level 9 10/15/19 20:48
[2019-10-15 21:51] LABS: Abs Immature Grans 0.04 k/cumm (0.0-0.09); Absolute Basophil Count 0.05 k/cumm (0.0-0.2); Absolute Eosinophil Count 0.21 k/cumm (0.0-0.7); Absolute Lymphocyte Count 4.04 k/cumm (1.2-3.4); Absolute Monocyte Count 1.07 k/cumm (0.11-0.7); Absolute Neutrophil Count 7.97 k/cumm (1.2-6.7); Basophils % 0.4; Eosinophils % 1.6; HGB 13.7 g/dL (13.5-17.5); Immature Grans % 0.3; Lymphocytes % 30.2; Mean Corp. HGB Concentration 33.4 g/dL (32.0-36.0); Mean Corpuscular Hemoglobin 30.1 pg (27.0-33.0); Mean Corpuscular Volume 90.1 fL (80-95); Mean Platelet Volume 8.8 fL (8.0-11.0); Neutrophils % 59.5; Platelet Count 316 x1000/uL (130-400); RBC 4.55 m/cumm (4.50-6.00); RBC Distribution Width 13.2 % (11.8-14.1); White Blood Cell Count 13.39 k/cumm (4.4-10.8)
[2019-10-15] MEDS: ceFAZolin 2 GM/50 ML BAG IVPB (21:58)
[2019-10-15 22:02] LABS: Anion Gap 6.9 mmol/L (3-11); BUN 8 mg/dL (7-18); C-Reactive Protein 0.75 mg/dL (0.0-0.3); CO2 29.1 mmol/L (21.0-32.0); CREATININE 0.81 mg/dL (0.70-1.30); Calcium 9.1 mg/dL (8.5-10.1); Chloride 102 mmol/L (98-107); Glucose 80 mg/dL (74-106); Potassium 4.3 mmol/L (3.5-5.1); Sodium 138 mmol/L (136-145)
--- NOTE | 2019-10-15 22:10 | DI.RAD_ITS ---
EXAM: XR FINGER RT INDEX INDICATION: pain, swelling, no trauma. COMPARISON: RIGHT HAND COMPLETE from 05/25/2018 TECHNIQUE: 2D digital imaging was performed. FINDINGS: No bone or joint abnormality is identified. There is soft tissue swelling of the right index finger. No radiopaque foreign bodies are seen in the soft tissues. IMPRESSION: Soft tissue swelling of the right index finger.
[2019-10-15] MEDS: HYDROmorphone 2 MG/ML VIAL 1 MG IVP (22:19)
--- NOTE | 2019-10-15 22:22 | DI.VRAD_ITS ---
PROCEDURE INFORMATION: Exam: XR Right Finger(s) Exam date and time: 10/15/2019 9:25 PM Age: 44 years old Clinical history: Finger(s); Right; Patient HX: Pain, swelling, no trauma TECHNIQUE: Imaging protocol: XR Right fingers. Views: Minimum 2 views. COMPARISON: CR RIGHT HAND COMPLETE 05/25/2018 3:34 AM FINDINGS: Bones/joints: No significant osseous abnormalities identified. Soft tissues: There is soft tissue swelling present about the finger. IMPRESSION: Soft tissue swelling. No significant osseous abnormality is identified. Dictated and Authenticated by: Héctor Nesbitt MD. Ordering:BORA Garcia MD
[2019-10-15 22:36] LABS: ESR 19 mm/hr (0-15)
[2019-10-15 22:52] VITALS: BP 154/93; PULSE 65; RESP 16; TEMP 37.1; O2SAT 95
--- NOTE | 2019-10-15 22:54 | NUR.NOTE ---
Pt states he is unable to stay and be admitted, he needs to go to work and speak to his boss, will be able to come back tomorrow for admission. MD Huang aware, in to speak to pt. IV removed. Discharge instructions reviewed with verbal understanding. aware to f/u with pcp, return for admission at any time.
[2019-10-15] MEDS: Cephalexin 500 MG CAP PO (23:04)
== END 2019-10-15 23:05 | disposition left against medical advice (07) ==
PROVIDERS: Emergency Provider Student in an Organized Health Care Education/Training Program; PCP General Practice
DX: L08.9 Local infection of the skin and subcutaneous tissue, unspecified (principal); Z53.29 Procedure and treatment not carried out because of patient's decision for other reasons
CPT/HCPCS: 36415; 80048; 85652; 87040; 96365; 96375; 99284; 73140; 85025; 86140; J0690

== ENCOUNTER 2019-10-17 13:33 | Inpatient (IN) | payer OTHER, SELFPAY ==
[2019-10-17] VITALS (11 sets, daily range): BP systolic 113–142; BP diastolic 56–95; PULSE 62–85; RESP 12–18; TEMP 36.5–37.2; O2SAT 93–100
[2019-10-17] MEDS: HYDROmorphone 2 MG/ML VIAL 1 MG IVP ×2 (15:04→18:25)
[2019-10-17] MEDS: Ondansetron 4 MG/2 ML VIAL IVP (15:04)
[2019-10-17 15:25] LABS: Abs Immature Grans 0.04 k/cumm (0.0-0.09); Absolute Basophil Count 0.04 k/cumm (0.0-0.2); Absolute Eosinophil Count 0.07 k/cumm (0.0-0.7); Absolute Lymphocyte Count 3.75 k/cumm (1.2-3.4); Absolute Monocyte Count 0.95 k/cumm (0.11-0.7); Basophils % 0.3; Eosinophils % 0.6; HCT 41.4 % (40.0-50.0); HGB 14.1 g/dL (13.5-17.5); Immature Grans % 0.3; Lymphocytes % 30.4; Mean Corp. HGB Concentration 34.1 g/dL (32.0-36.0); Mean Corpuscular Hemoglobin 30.7 pg (27.0-33.0); Mean Corpuscular Volume 90.2 fL (80-95); Mean Platelet Volume 8.8 fL (8.0-11.0); Monocytes % 7.7; Neutrophils % 60.7; Platelet Count 304 x1000/uL (130-400); RBC 4.59 m/cumm (4.50-6.00); RBC Distribution Width 13.6 % (11.8-14.1); White Blood Cell Count 12.32 k/cumm (4.4-10.8)
[2019-10-17 15:28] LABS: Absolute Neutrophil Count 7.48 k/cumm (1.2-6.7)
[2019-10-17 15:35] LABS: C-Reactive Protein 1.48 mg/dL (0.0-0.3)
[2019-10-17] MEDS: HYDROmorphone 2 MG/ML VIAL (15:59)
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
[2019-10-17] MEDS: VANCOMYCIN 1,500 MG in Normal Saline 250 ML 166.6666 MG IVPB (16:32)
[2019-10-17 16:38] LABS: ESR 8 mm/hr (0-15)
[2019-10-17] MEDS: DOXYCYCLINE 100 MG in Normal Saline 100 ML IVPB (17:34)
--- NOTE | 2019-10-17 17:39 | W.ORTHOCONSU ---
Date of service: 10/17/19 Time of Service: 17:39 History of Present Illness Narrative: Chief Complaint: Right index finger pain HPI: 44-year-old male with right index finger pain for approximately 1 week. Unknown exact time or onset. He initially thought his symptoms were related to gout although he does not have a history of gout. He denies any puncture wounds, animal bites, or other trauma to the finger or hand. Denies any needle use. Pain has grown, steadily become more severe sharp with pressure radiating to both sides of the finger and volarly into the palm over the past few days. He has continued to work as a [employer]. He presented to the emergency room 2 days ago when the pain became so severe he could not take it anymore. Unfortunately, he left the emergency room AGAINST MEDICAL ADVICE when the on-call orthopedic surgeon recommended admission for antibiotics and surgical management. He instead went to work on Saturday and has been using Keflex as a PO antibiotic. Now that is the weekend and he does not have work he decided to return to the emergency room as he cannot take the pain any longer. Denies pain in any other parts of the hand or any other digits. prior injury: No attempted treatments: P.o. antibiotics for 36 hours prior imaging: None PMH: Denies diabetes: Denies allergies: NKDA FH: non-contributory SH: hand dominance: Right occupation: [employer] smoke cigarettes: Yes active smoker 1 pack/day Consult Reason Right hand index finger flexor tenosynovitis Assessment and Plan Assessment and plan (1) Suppurative tenosynovitis of flexor tendon of right hand: Status: Acute Assessment and plan: 44-year-old male with right hand index finger flexor tenosynovitis. Unfortunately, this is a chronic FTS infection at this point with a duration approximately 5 to 7 days. May have started as a felon, but has been severe pyogenic flexor tenosynovitis for at least 48 hours. Management is complicated by significant alcohol and smoking/nicotine abuse. As well as patient refusal to accept appropriate management of this problem 2 days ago in the emergency room and instead left AGAINST MEDICAL ADVICE. Although I am not on-call, I can make myself available to manage this orthopedic emergency with surgery tonight. The patient will need to be admitted to the medical hospitalist service for inpatient care and IV antibiotics. I will discuss the case with the admitting hospitalist. Recommend IV antibiotics to include coverage for community-acquired MRSA. No reason to hold antibiotics pending OR as he is already been on antibiotics. Vancomycin may have caused some itching, which is already resolved in the emergency room. May use daptomycin instead. Will obtain operative room cultures. Decision for for emergent operative intervention to include right hand index finger irrigation and debridement. The patient understands he will need to be admitted for at least a few nights postoperatively for IV antibiotics and to monitor clinical improvement. I discussed at length the guarded prognosis for this severe injury given the difficulty treating these injuries acutely and the high complication rates including stiffness and pain. I discussed the possible future need for reoperation as the infection may not be able to be eradicated with one operation due to the chronicity. The remaining risks, benefits, and alternatives were thoroughly discussed. Patient was counseled regarding pain management, expected postoperative course, and recovery timeline. All questions were answered. Informed consent was obtained. Agree and understand treatment plan. Again, all parties are aware that this is a high risk infection that is high risk for complications given the patient's neglect of symptoms for significant amount of time and refusal of prior care. Postoperatively it will be important to prevent contracture and start immediate finger active and passive range of motion as tolerated. Occupational and hand therapy will be ordered. In addition to monitoring the patient's clinical response to surgery antibiotics, we can also repeat inflammatory markers including CBC, ESR, CRP every 48 hours. (2) Felon of finger of right hand: Status: Acute Review of Systems Constitutional Constitutional: Denies chills and Denies fever(s) Eyes Eyes: Denies diplopia and Denies loss of vision ENT Ears, Nose, Mouth, and Throat: Denies dental pain and Denies other (cavities) Cardiovascular Cardiovascular: Denies chest pain with activity, Denies irregular heart rhythm and Denies dyspnea Respiratory Respiratory: Denies cough and Denies dyspnea Gastrointestinal Gastrointestinal: Denies nausea and Denies vomiting Musculoskeletal Musculoskeletal: Reports as per HPI Integumentary/Breasts Skin/Breast: Denies rash and Denies wounds Neurologic Neurologic: Reports as per HPI and Denies loss of vision Psychiatric Psychiatric: Denies anxiety and Denies depression Hematologic/Lymphatic Hematologic/Lymphatic: Denies easy bleeding and Denies easy bruising Allergic/Immunologic Allergic/Immunologic: Reports as per HPI [facility] Medical History Alcohol abuse (Chronic) Kidney stone (Chronic) Surgical History SHOULDER SURGERY Social History Smoking/Tobacco Use Status: Current every day Alcohol Intake: never Drug use: Never Do you feel safe at home: Yes Do you feel safe in your relationship?: Yes Exam Const General: cooperative, uncomfortable and acute distress Orientation: alert, awake and not confused Limitations: mental status not altered and no language barrier Other: Smells of smoke HENMT Head: normocephalic and atraumatic Neck Neck: normal visual inspection and full ROM Resp Effort & Inspection: normal respiratory effort, able to speak in complete sentences, no audible wheezes and no grunting Cardio Other: 2+ radial pulse. Regular rate and rhythm. No peripheral edema except for edema isolated to the right hand index finger. General: deferred Skin Lesions: lesion noted (About the hands from [employer] work per the patient) Rashes: no rashes Neuro General: alert, awake and oriented x3 Cognition: normal cognition Speech: speech normal Extrem Other: Right hand: Moderate fusiform swelling of the right hand index finger. Finger rests in the flexed position. Exquisite tenderness to palpation over the flexor tendon sheath. Significant pain and inability to extend the digit. Significant tenderness dorsally. Discoloration of the nail plate with possible purulence below versus blanching. Sensory status difficult to assess given exquisite pain about all skin surfaces but grossly intact. No other areas in the hand palm dorsally volarly or in any of the other digits with swelling, redness, or tenderness. Demonstrates full painless range of motion of the thumb long finger ring finger small finger and the wrist. Left hand: No abnormalities; full painless range of motion Psych Appearance: grossly normal Mental Status: mental status grossly normal Speech and Movement: speech and movement normal Affect: normal affect Attitude: cooperative Results Last Vital Signs Temp 97.7 F 10/17/19 13:46 Pulse 66 10/17/19 17:08 Resp 18 10/17/19 17:08 BP 126/95 H 10/17/19 17:08 Pulse Ox 96 10/17/19 17:08 Labs Result diagrams: 10/17/19 15:11 Labs: Laboratory Results - last 24 hr 10/17/19 10/17/19 15:11 15:11 WBC 12.32 H RBC 4.59 Hgb 14.1 Hct 41.4 MCV 90.2 MCH 30.7 MCHC 34.1 RDW 13.6 Plt Count 304 MPV 8.8 Immature Gran % 0.3 Neutrophils % 60.7 Lymphocytes % 30.4 Monocytes % 7.7 Eosinophils % 0.6 Basophils % 0.3 Absolute Neutrophils 7.48 H Absolute Lymphocytes 3.75 H Absolute Monocytes 0.95 H Absolute Eosinophils 0.07 Absolute Basophils 0.04 ESR 8 C-Reactive Protein 1.48 H Imaging Additional studies: WBC elevated. CRP elevated and increased compared with prior month to revisit. Cultures obtained from the ER visit 48 hours ago are negative no growth to date. Chart reviewed and summarized as following: Patient with prior visits to the emergency room 2 days ago for similar symptoms. After evaluation, management with admission and likely surgical intervention was recommended. The patient refused and left AGAINST MEDICAL ADVICE.
--- NOTE | 2019-10-17 18:05 | W.PM.OP ---
Date of service: 10/17/19 Time of Service: 19:51 Operative Note Operative Note DATE OF PROCEDURE: 10/17/19 PRE-OP DIAGNOSIS: Right hand index finger pyogenic flexor tenosynovitis Right hand index finger felon POST-OP DIAGNOSIS: same PROCEDURE: 1. Right hand index finger flexor tendon sheath irrigation and debridement of pyogenic flexor tenosynovitis 2. Right hand index finger drainage of complicated abscess, felon 3. Right hand index finger nailbed repair SURGEON: Paolo Naranjo NEWS TECHNICAL DIRECTOR: Sandi Bangura ANESTHESIA: GETSameera ESTIMATED BLOOD LOSS: 10 PATHOLOGY: other (3 sets of wound cultures for Gram stain, anaerobic and aerobic culture.) TOURNIQUET TIME: 31 COMPLICATIONS: None Patient was transported to: PACU Patient's condition: stable Indications: Please see complete medical record for details. Procedure Description: The patient was taken to the operating room and transferred to the operating room table. Anesthesia was induced. All bony prominences were well-padded. Preoperative antibiotics had been administered in the emergency room. The right hand was prepped and draped in the usual sterile fashion. The correct patient, procedure, and side of the procedure were all verified prior to incision. He has marked was tightly wrapped around the distal forearm as a tourniquet. I started with the angiocatheter approach for irrigation debridement of the right hand index finger. A longitudinal incision was made proximal to the right hand index finger A1 javier. Dissection was carried down to the flexor tendons just proximal to the javier. Small amount of purulence was encountered and 1 set of cultures was taken. The flexor tendons were delivered from the room and debrided of adhesion tissue. An angiocatheter was inserted in this position. Next a longitudinal mid axial incision was made just proximal to the DIPJ to gain access to the flexor tendon sheath just distal to the A4 javier. Care was taken to make this incision dorsal to the digital neurovascular structures however they were not directly visualized and they were not directly visualized. More purulence was encountered upon entering the flexor tendon sheath and another set of cultures were taken. Lastly attention was turned to decompressing the felon infection through another mid axial ulnar-sided incision. Significant purulence was drained about the distal phalanx and pulp. And underneath the nailbed. The infection caused a large defect in the nail bed. The nail was partially removed to allow for full exposure. The eponychial fold and will make sure not disturbed. Purulence was removed from about the nailbed. 3 L of normal saline irrigant was used to thoroughly flush all purulence out of the flexor tendon sheath and to grossly irrigate and debride purulence about the distal phalanx. 10 cc of 1% lidocaine with epinephrine and 0.5% bupivacaine were infiltrated about the incisions and medial and laterally to the base of the index finger for postoperative analgesia. The nailbed was repaired using simple interrupted stitches of 6-0 plain gut. The Esmarch tourniquet was let down. Hemostasis was achieved. Strips of Xeroform packing were placed in all 3 incisions. The incisions were loosely approximated using 3-0 and 4-0 nylon to allow for drainage of the significant edema and any remaining infection and to prevent reaccumulation area. The surgical sites were covered with dry gauze in the finger was wrapped in Kerlix that included the hand and wrist to keep the dressing on. Everything was covered in Hakan wrap. The patient awoke from anesthesia without complication and was transferred to recovery room in stable condition. The patient was signed out to the on-call hospitalist.
[2019-10-17] MEDS: Ketorolac 15 MG/ML VIAL IVP (18:26)
[2019-10-17] MEDS: Lactated Ringers 1,000 ML 30 ML IV (18:43)
[2019-10-17] MEDS: Bupivacaine 0.5% Pres-Free 30 ML VIAL (19:33)
--- NOTE | 2019-10-17 20:00 | W.PM.PROGNOT ---
Date of Service Date of service: 10/17/19 Time of Service: 18:00 Assessment and Plan Assessment and plan (1) Felon of finger of right hand: Status: Acute Assessment and plan: as below (2) Suppurative tenosynovitis of flexor tendon of right hand: Status: Acute Assessment and plan: 44M POD#0 s/p Rt hand index finger I&D of chronic infectious flexor tenosynovitis and felon pain control- multimodal strict elevation on pillows while in bed WBAT/ ROM as tolerated Maintain dressings/ re-inforce as needed - some drainage is expected as incisions are loosely approximated Dressing change Friday 10/19 Follow up OR cultures- empiric IV antibiotic coverage for GPC & GNR pending cultures and sensitivities Hand therapy/ OT to restore full passive and active ROM after dressings removed on Saturday and prevent contracture DVT ppx per primary team/ encourage OOB/ ambulate ad barron Discussed the importane of smoking, vaping, and nicotine cessation with the patient Case discussed with admitting hospitalist Will follow along Subjective Subjective Interval history since last seen: No acute events. No new complaints. Resting comfortable in the PACU. Feels much better finger pressure relieved and grateful Exam Const General: cooperative and no acute distress Orientation: alert, awake and not confused Limitations: mental status not altered and no language barrier Resp Effort & Inspection: normal respiratory effort, able to speak in complete sentences, no audible wheezes and no grunting General: deferred Neuro General: alert, awake and oriented x3 Cognition: normal cognition Speech: speech normal Extrem Other: Right hand dressing c/d/i Operative sites about index finger numb from local anesthesia No proximal streaking No pain with ROM of the wrist of other digits Psych Appearance: grossly normal Mental Status: mental status grossly normal Speech and Movement: speech and movement normal Affect: normal affect Attitude: cooperative Objective Objective Clinical Data: Abnormal lab results 10/17/19 10/17/19 Range/Units 15:11 15:11 WBC 12.32 H (4.4-10.8) k/cumm Absolute Neutrophils 7.48 H (1.2-6.7) k/cumm Absolute Lymphocytes 3.75 H (1.2-3.4) k/cumm Absolute Monocytes 0.95 H (0.11-0.7) k/cumm C-Reactive Protein 1.48 H (0.0-0.3) mg/dL Vital Signs Temperature 98.1 F 10/18/19 03:30 Temperature Source Tympanic 10/18/19 03:30 Pulse 74 10/18/19 03:30 Pulse Rhythm Regular 10/17/19 23:45 Respiratory Rate 18 10/18/19 03:30 Respiratory Effort Non-Labored 10/17/19 23:45 Respiratory Depth Normal 10/17/19 23:45 Respiratory Pattern Normal 10/17/19 23:45 Blood Pressure 125/72 10/18/19 03:30 Pulse Oximetry 96 10/18/19 03:30 Respiratory End-tidal CO2 39 10/17/19 20:10 Oxygen Delivery Method Room Air 10/18/19 03:30 Oxygen Flow Rate 0 10/18/19 03:30 Pain Level 9 10/18/19 10:03 Intake & Output 10/17/19 10/17/19 10/18/19 11:59 23:59 11:59 Intake Total 991.517 / 991.517 400 / 400 Output Total 350 / 350 Balance 641.517 / 641.517 400 / 400 Weight 190 lb 0.016 oz Intake: IV 991.517 / 991.517 400 / 400 Output: Urine 350 / 350 Other: Urine Color Dark Sarah Urine Appearance Clear Urine Odor Strong Emesis Description None Voiding Methods Toilet Urinal Laboratory Results WBC 12.32 k/cumm (4.4-10.8) H 10/17/19 15:11 RBC 4.59 m/cumm (4.50-6.00) 10/17/19 15:11 Hgb 14.1 g/dL (13.5-17.5) 10/17/19 15:11 Hct 41.4 % (40.0-50.0) 10/17/19 15:11 MCV 90.2 fL (80-95) 10/17/19 15:11 MCH 30.7 pg (27.0-33.0) 10/17/19 15:11 MCHC 34.1 g/dL (32.0-36.0) 10/17/19 15:11 RDW 13.6 % (11.8-14.1) 10/17/19 15:11 Plt Count 304 x1000/uL (130-400) 10/17/19 15:11 MPV 8.8 fL (8.0-11.0) 10/17/19 15:11 Immature Gran % 0.3 10/17/19 15:11 Neutrophils % 60.7 10/17/19 15:11 Lymphocytes % 30.4 10/17/19 15:11 Monocytes % 7.7 10/17/19 15:11 Eosinophils % 0.6 10/17/19 15:11 Basophils % 0.3 10/17/19 15:11 Absolute Neutrophils 7.48 k/cumm (1.2-6.7) H 10/17/19 15:11 Absolute Lymphocytes 3.75 k/cumm (1.2-3.4) H 10/17/19 15:11 Absolute Monocytes 0.95 k/cumm (0.11-0.7) H 10/17/19 15:11 Absolute Eosinophils 0.07 k/cumm (0.0-0.7) 10/17/19 15:11 Absolute Basophils 0.04 k/cumm (0.0-0.2) 10/17/19 15:11 ESR 8 mm/hr (0-15) 10/17/19 15:11 C-Reactive Protein 1.48 mg/dL (0.0-0.3) H 10/17/19 15:11 Objective Narrative Objective Narrative: Operative gram stain results: Positive for GPC and GNR
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
[2019-10-17] MEDS: CEFEPIME 2 GM in Normal Saline 100 ML IVPB (22:21)
[2019-10-17] MEDS: Ketorolac 30 MG/ML VIAL IVP (23:49)
[2019-10-17] MEDS: Normal Saline Flush 10 ML SYR IVP (23:49)
[2019-10-17] MEDS: Nicotine 21 MG/24 HR PATCH TD (23:50)
[2019-10-17] MEDS: Normal Saline 500 ML IV (23:50)
[2019-10-17] MEDS: LINEZOLID 600 MG/300 ML BAG 300 MG IVPB (23:50)
[2019-10-18 00:02] VITALS: BP 112/68; PULSE 68; RESP 18; TEMP 36.6; O2SAT 98
[2019-10-18] MEDS: Acetaminophen 325 MG TAB 650 MG PO ×3 (00:10→19:21)
[2019-10-18 03:30] VITALS: BP 125/72; PULSE 74; RESP 18; TEMP 36.7; O2SAT 96
[2019-10-18] MEDS: Ketorolac 30 MG/ML VIAL IVP ×3 (06:55→17:52)
[2019-10-18] MEDS: Normal Saline Flush 10 ML SYR IVP ×7 (06:57→22:26)
[2019-10-18 07:18] VITALS: BP 124/76; PULSE 75; RESP 17; TEMP 37.1; O2SAT 96
[2019-10-18] MEDS: CEFEPIME 2 GM in Normal Saline 100 ML IVPB ×3 (07:32→21:54)
[2019-10-18] MEDS: oxyCODONE 5 mg/Acetaminophen 325 mg TAB PO (07:59)
[2019-10-18] MEDS: HYDROmorphone 2 MG/ML VIAL 1 MG IVP ×5 (10:03→22:26)
[2019-10-18] MEDS: Nicotine 21 MG/24 HR PATCH TD ×2 (10:04→14:24)
[2019-10-18] MEDS: LINEZOLID 600 MG/300 ML BAG 300 MG IVPB ×2 (10:04→22:32)
[2019-10-18 11:19] VITALS: BP 181/84; PULSE 84; RESP 17; TEMP 36.7; O2SAT 98
--- NOTE | 2019-10-18 11:22 | PHARADMIT ---
Admission Pharmacy Clinical Review PYOGENIC FLEXOR TENOSYNOVITIS Code Status Full Code Current Weight 86.183 kg Renally Cleared and Narrow Therapeutic Index Meds CRCL 116ML/MIN QTc Value / Action Taken NA BP Control, Fever 125/72 AFEBRILE Electrolytes reviewed NA DVT Prophylaxis NO Opiate Usage / Scheduled Bowel Regimen Ordered PRN/GIBSON Plt/SCr for Heparin / Enoxaparin 304/0.81 INR for Warfarin NA H/H stable, WBC/Bands 14.1/41.4 WBC 12.32 Antibiotic appropriateness LINEZOLID (RXN TO VANCO), CEFEPIME Cultures and Sensitivities CULTURES PENDING Surgical ABX d/c within 24 hr NA DM control / Insulin Dosing NA Heart Failure (Check EF%) (LIV's, B-Block, Diuretics) NA IV to PO Switch IV ABX Home Meds Reviewed OK Home Meds Not Ordered ibuprofen [IBU] 600 mg PO QID PRN # cephalexin [Keflex] 500 mg PO QID # Comments POST OP
[2019-10-18] MEDS: oxyCODONE 5 MG TAB PO ×3 (11:51→20:02)
--- NOTE | 2019-10-18 16:05 | W.PM.PROGNOT ---
Date of Service Date of service: 10/18/19 Time of Service: 16:05 Assessment and Plan Assessment and plan (1) Suppurative tenosynovitis of flexor tendon of right hand: Status: Acute Assessment and plan: Post I&D of right index finger on 10/17. Vancomycin with reaction/allergy during administration in the ED. - Wound culture with growth of GNR & GP Nat. Continue Linezolid and Cefepime, and monitor culture results. - Pain control suboptimal. Will initiate IV Dilaudid for severe pain, in addition to short-term IV Toradol and oral Oxycodone. - Recommendation for strict elevation with rest on pillows while in bed. - Plan on OT Consult per ortho recommendations. (2) DVT prophylaxis: Status: Acute Assessment and plan: SCDs and encourage ambulation. If patient remains in hospital for any additional time consider initiation of chemical DVT Prophylaxis. Subjective Subjective Interval history since last seen: 44-year-old man admitted from [facility] Emergency Department on 10/17 with a diagnosis of right index finger Tenosynovitis. Mr. Davey has a past Medical History significant for ADHD and kidney stones, initially presented to the ED on 10/15 with complaints of pain overlying his right index finger. He was diagnosed with likely infection, and accepted by orthopedic surgery for admission into the hospital. However, the patient refused admission and left AMA at that time. He did however present as an outpatient to the Ortho offices, and began treatment with a course of oral Cephalexin with likelihood for need of surgical debridement. He presented back to the ED with worsening pain, now asked to be admitted by medicine for treatment of a pyogenic flexor Tenosynovitis. Mr. Davey underwent an I&D of the index finger on the night of admission via Ortho, and remains on combination of Linezolid and Cefepime due to Cultures that show growth of GNR and Gram + Nat. His pain is uncontrolled currently. No overnight events reported. Remains afebrile. Exam Narrative Exam Narrative: General: Patient appears uncomfortable secondary to pain, AAOX3, NAD Upper Extremity: Right hand with index finger thickly bandaged, elevated in bed. Not cyanotic. Sensation intact. Psych: Normal mood and affect. Objective Objective Clinical Data: Vital Signs Temperature 36.7 C 10/18/19 11:19 Temperature Source Temporal Artery Scan 10/18/19 11:19 Pulse 84 10/18/19 11:19 Pulse Rhythm Regular 10/18/19 08:30 Respiratory Rate 17 10/18/19 11:19 Respiratory Effort Non-Labored 10/18/19 08:30 Respiratory Depth Normal 10/18/19 08:30 Respiratory Pattern Normal 10/18/19 08:30 Blood Pressure 181/84 H 10/18/19 11:19 Pulse Oximetry 98 10/18/19 11:19 Respiratory End-tidal CO2 39 10/17/19 20:10 Oxygen Delivery Method Room Air 10/18/19 11:19 Oxygen Flow Rate 0 10/18/19 11:19 Pain Level 8 10/18/19 16:01 Intake & Output 10/17/19 10/18/19 10/18/19 23:59 11:59 23:59 Intake Total 991.517 / 991.517 400 / 1916 151 / 1916 Output Total 350 / 350 Balance 641.517 / 641.517 400 / 1916 151 / 1916 Weight 86.183 kg Intake: IV 991.517 / 991.517 400 / 1316 916 / 1316 Oral 600 / 600 Output: Urine 350 / 350 Other: Urine Color Dark Sarah Urine Appearance Clear Urine Odor Strong Comment reports voiding independently without difficulty Emesis Description None Voiding Methods Toilet Urinal Laboratory Results WBC 12.32 k/cumm (4.4-10.8) H 10/17/19 15:11 RBC 4.59 m/cumm (4.50-6.00) 10/17/19 15:11 Hgb 14.1 g/dL (13.5-17.5) 10/17/19 15:11 Hct 41.4 % (40.0-50.0) 10/17/19 15:11 MCV 90.2 fL (80-95) 10/17/19 15:11 MCH 30.7 pg (27.0-33.0) 10/17/19 15:11 MCHC 34.1 g/dL (32.0-36.0) 10/17/19 15:11 RDW 13.6 % (11.8-14.1) 10/17/19 15:11 Plt Count 304 x1000/uL (130-400) 10/17/19 15:11 MPV 8.8 fL (8.0-11.0) 10/17/19 15:11 Immature Gran % 0.3 10/17/19 15:11 Neutrophils % 60.7 10/17/19 15:11 Lymphocytes % 30.4 10/17/19 15:11 Monocytes % 7.7 10/17/19 15:11 Eosinophils % 0.6 10/17/19 15:11 Basophils % 0.3 10/17/19 15:11 Absolute Neutrophils 7.48 k/cumm (1.2-6.7) H 10/17/19 15:11 Absolute Lymphocytes 3.75 k/cumm (1.2-3.4) H 10/17/19 15:11 Absolute Monocytes 0.95 k/cumm (0.11-0.7) H 10/17/19 15:11 Absolute Eosinophils 0.07 k/cumm (0.0-0.7) 10/17/19 15:11 Absolute Basophils 0.04 k/cumm (0.0-0.2) 10/17/19 15:11 ESR 8 mm/hr (0-15) 10/17/19 15:11 C-Reactive Protein 1.48 mg/dL (0.0-0.3) H 10/17/19 15:11
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
[2019-10-18 19:20] VITALS: BP 160/84; PULSE 64; RESP 20; TEMP 36.8; O2SAT 98
[2019-10-18] MEDS: Docusate Sodium 100 MG CAP PO (19:22)
[2019-10-18] MEDS: Senna TAB 2 TAB PO (21:49)
--- NOTE | 2019-10-18 22:48 | NUR.NOTE ---
Nursing Note: Pt been medicated with Dilaudid 1mg IVP, oxycodone, Toradol as scheduled and tylenol but verbalized of no effect. Wants to have Dilaudid dose will be increased. concessions manager notified and contacted applications project manager hospitalist and lola luck for additional pain med. When relayed to pt , he verbalized of I will sign out tonight, stay home on pain. If ever I will go out, nobody will see me Cold pack offered and refused. Continue to redirect pt. Dilaudid 1 mg PRN due at 2230 hrs. and administered that made him calm down a little bit, Linezoid as scheduled infusing. Pt elevating affected arm on pillow and continue talking about pain med. Nursing will monitor closely for any physiologic changes and MD will be posted.
[2019-10-18 23:24] VITALS: BP 160/84; PULSE 60; RESP 19; TEMP 36.8; O2SAT 97
[2019-10-19] MEDS: oxyCODONE 5 MG TAB PO ×6 (00:01→20:27)
[2019-10-19] MEDS: Ketorolac 30 MG/ML VIAL IVP ×5 (00:02→23:38)
[2019-10-19] MEDS: Normal Saline Flush 10 ML SYR IVP ×12 (00:02→23:38)
[2019-10-19 00:05] VITALS: BP 133/83; PULSE 85; RESP 19; TEMP 36.9; O2SAT 97
[2019-10-19] MEDS: HYDROmorphone 2 MG/ML VIAL 1 MG IVP ×8 (01:31→23:39)
[2019-10-19 03:37] VITALS: BP 144/87; PULSE 64; RESP 17; TEMP 36.5; O2SAT 97
[2019-10-19] MEDS: CEFEPIME 2 GM in Normal Saline 100 ML IVPB ×3 (06:45→22:08)
[2019-10-19 06:52] LABS: Abs Immature Grans 0.03 k/cumm (0.0-0.09); Absolute Basophil Count 0.04 k/cumm (0.0-0.2); Absolute Eosinophil Count 0.41 k/cumm (0.0-0.7); Absolute Lymphocyte Count 3.05 k/cumm (1.2-3.4); Absolute Monocyte Count 1.37 k/cumm (0.11-0.7); Absolute Neutrophil Count 5.83 k/cumm (1.2-6.7); Basophils % 0.4; Eosinophils % 3.8; HCT 40.3 % (40.0-50.0); HGB 13.3 g/dL (13.5-17.5); Immature Grans % 0.3; Lymphocytes % 28.4; Mean Corpuscular Hemoglobin 30.2 pg (27.0-33.0); Mean Corpuscular Volume 91.6 fL (80-95); Mean Platelet Volume 9.3 fL (8.0-11.0); Monocytes % 12.8; Neutrophils % 54.3; Platelet Count 281 x1000/uL (130-400); RBC Distribution Width 13.6 % (11.8-14.1); White Blood Cell Count 10.73 k/cumm (4.4-10.8)
[2019-10-19 07:02] LABS: Anion Gap 7.7 mmol/L (3-11); BUN 10 mg/dL (7-18); CO2 27.3 mmol/L (21.0-32.0); CREATININE 0.81 mg/dL (0.70-1.30); Calcium 8.4 mg/dL (8.5-10.1); Chloride 106 mmol/L (98-107); Glucose 87 mg/dL (74-106); Sodium 141 mmol/L (136-145)
[2019-10-19 07:22] VITALS: BP 180/92; PULSE 65; RESP 18; TEMP 36.5; O2SAT 98
[2019-10-19 07:35] LABS: ESR 17 mm/hr (0-15)
[2019-10-19 07:38] LABS: C-Reactive Protein 1.76 mg/dL (0.0-0.3)
--- NOTE | 2019-10-19 09:21 | OT.INNT ---
Date of service: 10/19/19 Time of Service: 09:00 Occupational Therapy Notes 10/19/19 OT consult received and pt's chart was reviewed. Pt was sleeping in bed with hand still in wrapping when OT arrived. Per nursing, MD will be in around noon to unwrap pts hand. OT will attempt to consult with pt tomorrow morning. [facility]
[2019-10-19] MEDS: LINEZOLID 600 MG/300 ML BAG 300 MG IVPB (09:49)
[2019-10-19] MEDS: Lactobacillus Acidophilus CAP 1 CAP PO ×2 (09:50→20:28)
[2019-10-19 11:28] VITALS: BP 177/97; PULSE 62; RESP 17; TEMP 37; O2SAT 98
--- NOTE | 2019-10-19 13:13 | W.PM.PROGNOT ---
Date of Service Date of service: 10/19/19 Time of Service: 13:13 Assessment and Plan Assessment and plan (1) Felon of finger of right hand: Status: Acute Assessment and plan: as below (2) Suppurative tenosynovitis of flexor tendon of right hand: Status: Acute Assessment and plan: 44M POD#2 s/p Rt hand index finger I&D of chronic infectious flexor tenosynovitis and felon pain control improving- multimodal per hospitalist strict elevation on pillows while in bed WBAT/ ROM as tolerated First dressing change done today with wound care Carlos Alberto WESLEY. Dressing to be changed daily starting tomorrow. The patient and his were instructed on dressing change today. This will be reinforced tomorrow. -Remove all bandages and Xeroform. May soak in 50-50 mixture of hydrogen peroxide and normal saline to aid in removal of Xeroform from fingertip. Swirl in 50-50 mixture for 5 to 10 minutes. Allowed to dry or dry with dry gauze prior to replacing Xeroform on the 3 incisions and fingertip, and cover with dry 4 x 4 gauze and wrapped the finger in the hand to secure the dressings with Kerlix. May switch to covering surgical sites with Band-Aids as soon as swelling and drainage allow, probably within 1 week. Follow up OR cultures- empiric IV antibiotic coverage for GPC & GNR pending cultures and sensitivities, which should be back tomorrow Hand therapy/ OT to restore full passive and active ROM as tolerated prevent contracture DVT ppx per primary team/ encourage OOB/ ambulate ad barron Care coordinated with admitting hospitalist Potential discharge tomorrow afternoon pending clinical improvement. Discussed the small, but real chance of requiring a second operation with the patient and the hospitalist for irrigation and debridement as this was again a chronic, severe infection. Subjective Subjective Interval history since last seen: Significant pain at times. Pain is described as definitely different than prior to surgery. It is deftly improved compared with prior to surgery. Pain now is sharp and about the fingertip. Pain before was a tremendous, intense swelling and pressure throughout most of the finger. Exam Const General: cooperative and uncomfortable (Uncomfortable especially with dressing change) Orientation: alert, awake and not confused Limitations: mental status not altered and no language barrier Resp Effort & Inspection: normal respiratory effort, able to speak in complete sentences, no audible wheezes and no grunting General: deferred Neuro General: alert, awake and oriented x3 Cognition: normal cognition Speech: speech normal Extrem Other: Right hand dressing largely c/d/i with mild serosanguineous and a small amount of purulence on the deepest layer of the dressing Operative sites the small openings from packing. Small amount of drainage somewhat purulent present. All packings and dressings removed today after soaking in mixture of saline and peroxide Able to flex and extend the MCP and to a lesser extent the PIP joints without significant pain. Exquisitely tender to palpation about the fingertip and unable to demonstrate DIPJ motion. No proximal streaking No pain with ROM of the wrist of other digits Psych Appearance: grossly normal Mental Status: mental status grossly normal Speech and Movement: speech and movement normal Affect: normal affect Attitude: cooperative Objective Objective Clinical Data: Abnormal lab results 10/19/19 10/19/19 10/19/19 Range/Units 06:20 06:20 06:20 RBC 4.40 L (4.50-6.00) m/cumm Hgb 13.3 L (13.5-17.5) g/dL Absolute Monocytes 1.37 H (0.11-0.7) k/cumm ESR 17 H (0-15) mm/hr Calcium 8.4 L (8.5-10.1) mg/dL C-Reactive Protein 1.76 H (0.0-0.3) mg/dL Vital Signs Temperature 97.7 F 10/19/19 07:22 Temperature Source Tympanic 10/19/19 07:22 Pulse 65 10/19/19 07:22 Pulse Rhythm Regular 10/19/19 10:12 Respiratory Rate 18 10/19/19 07:22 Respiratory Effort Non-Labored 10/19/19 10:12 Respiratory Depth Normal 10/19/19 10:12 Respiratory Pattern Normal 10/19/19 10:12 Blood Pressure 180/92 H 10/19/19 07:22 Pulse Oximetry 98 10/19/19 07:22 Respiratory End-tidal CO2 39 10/17/19 20:10 Oxygen Delivery Method Room Air 10/19/19 07:22 Oxygen Flow Rate 0 10/19/19 07:22 Pain Level 9 10/19/19 11:41 Intake & Output 11/10/19/19 10/19/19 23:59 11:59 23:59 Intake Total 2236 / 2636 300 / 300 Balance 2236 / 2636 300 / 300 Intake: IV 1516 / 1916 100 / 100 Oral 720 / 720 200 / 200 Other: Urine Appearance Clear Comment VOIDS INDEP AND FLUSHES. OOB TO BR AT LEAST 3 TIMES DURING NOC Stool Size Large Stool Characteristics Liquid Voiding Methods Toilet Laboratory Results WBC 10.73 k/cumm (4.4-10.8) 10/19/19 06:20 RBC 4.40 m/cumm (4.50-6.00) L 10/19/19 06:20 Hgb 13.3 g/dL (13.5-17.5) L 10/19/19 06:20 Hct 40.3 % (40.0-50.0) 10/19/19 06:20 MCV 91.6 fL (80-95) 10/19/19 06:20 MCH 30.2 pg (27.0-33.0) 10/19/19 06:20 MCHC 33.0 g/dL (32.0-36.0) 10/19/19 06:20 RDW 13.6 % (11.8-14.1) 10/19/19 06:20 Plt Count 281 x1000/uL (130-400) 10/19/19 06:20 MPV 9.3 fL (8.0-11.0) 10/19/19 06:20 Immature Gran % 0.3 10/19/19 06:20 Neutrophils % 54.3 10/19/19 06:20 Lymphocytes % 28.4 10/19/19 06:20 Monocytes % 12.8 10/19/19 06:20 Eosinophils % 3.8 10/19/19 06:20 Basophils % 0.4 10/19/19 06:20 Absolute Neutrophils 5.83 k/cumm (1.2-6.7) 10/19/19 06:20 Absolute Lymphocytes 3.05 k/cumm (1.2-3.4) 10/19/19 06:20 Absolute Monocytes 1.37 k/cumm (0.11-0.7) H 10/19/19 06:20 Absolute Eosinophils 0.41 k/cumm (0.0-0.7) 10/19/19 06:20 Absolute Basophils 0.04 k/cumm (0.0-0.2) 10/19/19 06:20 ESR 17 mm/hr (0-15) H 10/19/19 06:20 Sodium 141 mmol/L (136-145) 10/19/19 06:20 Potassium 4.0 mmol/L (3.5-5.1) 10/19/19 06:20 Chloride 106 mmol/L (98-107) 10/19/19 06:20 Carbon Dioxide 27.3 mmol/L (21.0-32.0) 10/19/19 06:20 Anion Gap 7.7 mmol/L (3-11) 10/19/19 06:20 BUN 10 mg/dL (7-18) 10/19/19 06:20 Creatinine 0.81 mg/dL (0.70-1.30) 10/19/19 06:20 Estimated GFR/1.73 m2 >= 60.00 (mL/min/1.73m2) 10/19/19 06:20 Glucose 87 mg/dL (74-106) 10/19/19 06:20 Calcium 8.4 mg/dL (8.5-10.1) L 10/19/19 06:20 Magnesium 2.0 mg/dL (1.8-2.4) 10/19/19 06:20 C-Reactive Protein 1.76 mg/dL (0.0-0.3) H 10/19/19 06:20
[2019-10-19] MEDS: Hydrogen Peroxide 3% 480 ML BTL (13:32)
--- NOTE | 2019-10-19 14:31 | PGE_ITS ---
Date of Service Date of service: 10/19/19 Time of Service: 14:31 Assessment and Plan Assessment and plan (1) Suppurative tenosynovitis of flexor tendon of right hand: Status: Acute Assessment and plan: Post I&D of right index finger on 10/17. Vancomycin with reaction/allergy during administration in the ED. - Wound culture with growth of GNR X2 & GP Nat not yet speciated. Continue Linezolid and Cefepime for now, and monitor culture results. - Pain control - continue IV Dilaudid for severe pain, in addition to short-term IV Toradol and oral Oxycodone. - Recommendation for strict elevation with rest on pillows while in bed. Daily dressing change starting tomorrow, per ortho. - Occupational therapy consult placed. (2) DVT prophylaxis: Status: Acute Assessment and plan: SCDs and encourage ambulation. Initiate chemical DVT Prophylaxis with Enoxaparin. Subjective Subjective Interval history since last seen: 44-year-old man admitted from [facility] Emergency Department on 10/17 with a diagnosis of right index finger Tenosynovitis. Mr. Davey has a past Medical History significant for ADHD and kidney stones, initially presented to the ED on 10/15 with complaints of pain overlying his right index finger. He was diagnosed with likely infection, and accepted by orthopedic surgery for admission into the hospital. However, the patient refused admission and left AMA at that time. He did however present as an outpatient to the Ortho offices, and began treatment with a course of oral Cephalexin with likelihood for need of surgical debridement. He presented back to the ED with worsening pain, now asked to be admitted by medicine for treatment of a pyogenic flexor Tenosynovitis. Mr. Davey underwent an I&D of the index finger on the night of admission via Ortho, and remains on combination of Linezolid and Cefepime due to Cultures that show growth of GNR and Gram + Nat. His pain is uncontrolled currently and was significantly worsened overnight, but this morning he reports improvement. No overnight events reported. Remains afebrile. Exam Narrative Exam Narrative: General: Patient appears uncomfortable secondary to pain, AAOX3, NAD Upper Extremity: Right hand with index finger thickly bandaged, elevated in bed. Remains cyanotic. Sensation intact. Psych: Normal mood and affect. Objective Objective Clinical Data: Abnormal lab results 11/10/19/19 10/19/19 Range/Units 06:20 06:20 06:20 RBC 4.40 L (4.50-6.00) m/cumm Hgb 13.3 L (13.5-17.5) g/dL Absolute Monocytes 1.37 H (0.11-0.7) k/cumm ESR 17 H (0-15) mm/hr Calcium 8.4 L (8.5-10.1) mg/dL C-Reactive Protein 1.76 H (0.0-0.3) mg/dL Vital Signs Temperature 37.0 C 10/19/19 11:28 Temperature Source Tympanic 10/19/19 11:28 Pulse 62 10/19/19 11:28 Pulse Rhythm Regular 10/19/19 10:12 Respiratory Rate 17 10/19/19 11:28 Respiratory Effort Non-Labored 10/19/19 10:12 Respiratory Depth Normal 10/19/19 10:12 Respiratory Pattern Normal 10/19/19 10:12 Blood Pressure 177/97 H 10/19/19 11:28 Pulse Oximetry 98 10/19/19 11:28 Respiratory End-tidal CO2 39 10/17/19 20:10 Oxygen Delivery Method Room Air 10/19/19 11:28 Oxygen Flow Rate 0 10/19/19 11:28 Pain Level 9 10/19/19 13:33 Intake & Output 10/18/19 10/19/19 10/19/19 23:59 11:59 23:59 Intake Total 2236 / 2636 720 / 720 Balance 2236 / 2636 720 / 720 Intake: IV 1516 / 1916 400 / 400 Oral 720 / 720 320 / 320 Other: Urine Appearance Clear Comment VOIDS INDEP AND FLUSHES. OOB TO BR AT LEAST 3 TIMES DURING NOC Stool Size Large Stool Characteristics Liquid Voiding Methods Toilet Laboratory Results WBC 10.73 k/cumm (4.4-10.8) 10/19/19 06:20 RBC 4.40 m/cumm (4.50-6.00) L 10/19/19 06:20 Hgb 13.3 g/dL (13.5-17.5) L 10/19/19 06:20 Hct 40.3 % (40.0-50.0) 10/19/19 06:20 MCV 91.6 fL (80-95) 10/19/19 06:20 MCH 30.2 pg (27.0-33.0) 10/19/19 06:20 MCHC 33.0 g/dL (32.0-36.0) 10/19/19 06:20 RDW 13.6 % (11.8-14.1) 10/19/19 06:20 Plt Count 281 x1000/uL (130-400) 10/19/19 06:20 MPV 9.3 fL (8.0-11.0) 10/19/19 06:20 Immature Gran % 0.3 10/19/19 06:20 Neutrophils % 54.3 10/19/19 06:20 Lymphocytes % 28.4 10/19/19 06:20 Monocytes % 12.8 10/19/19 06:20 Eosinophils % 3.8 10/19/19 06:20 Basophils % 0.4 10/19/19 06:20 Absolute Neutrophils 5.83 k/cumm (1.2-6.7) 10/19/19 06:20 Absolute Lymphocytes 3.05 k/cumm (1.2-3.4) 10/19/19 06:20 Absolute Monocytes 1.37 k/cumm (0.11-0.7) H 10/19/19 06:20 Absolute Eosinophils 0.41 k/cumm (0.0-0.7) 10/19/19 06:20 Absolute Basophils 0.04 k/cumm (0.0-0.2) 10/19/19 06:20 ESR 17 mm/hr (0-15) H 10/19/19 06:20 Sodium 141 mmol/L (136-145) 10/19/19 06:20 Potassium 4.0 mmol/L (3.5-5.1) 10/19/19 06:20 Chloride 106 mmol/L (98-107) 10/19/19 06:20 Carbon Dioxide 27.3 mmol/L (21.0-32.0) 10/19/19 06:20 Anion Gap 7.7 mmol/L (3-11) 10/19/19 06:20 BUN 10 mg/dL (7-18) 10/19/19 06:20 Creatinine 0.81 mg/dL (0.70-1.30) 10/19/19 06:20 Estimated GFR/1.73 m2 >= 60.00 (mL/min/1.73m2) 10/19/19 06:20 Glucose 87 mg/dL (74-106) 10/19/19 06:20 Calcium 8.4 mg/dL (8.5-10.1) L 10/19/19 06:20 Magnesium 2.0 mg/dL (1.8-2.4) 10/19/19 06:20 C-Reactive Protein 1.76 mg/dL (0.0-0.3) H 10/19/19 06:20
--- NOTE | 2019-10-19 14:45 | PGE_ITS ---
Assessment and Plan Assessment and plan (1) Suppurative tenosynovitis of flexor tendon of right hand: Status: Acute Assessment and plan: Post I&D of right index finger on 10/17. Vancomycin with reaction/allergy during administration in the ED. - Wound culture with growth of GNR & GP Nat. Continue Linezolid and Cefepime, and monitor culture results. - Pain control suboptimal. Will initiate IV Dilaudid for severe pain, in addition to short-term IV Toradol and oral Oxycodone. - Recommendation for strict elevation with rest on pillows while in bed. - Plan on OT Consult per ortho recommendations. (2) DVT prophylaxis: Status: Acute Assessment and plan: SCDs and encourage ambulation. If patient remains in hospital for any additional time consider initiation of chemical DVT Prophylaxis. Subjective Subjective Interval history since last seen: 44-year-old man admitted from [facility] Emergency Department on 10/17 with a diagnosis of right index finger Tenosynovitis. Mr. Davey has a past Medical History significant for ADHD and kidney stones, initially presented to the ED on 10/15 with complaints of pain overlying his right index finger. He was diagnosed with likely infection, and accepted by orthopedic surgery for admission into the hospital. However, the patient refused admission and left AMA at that time. He did however present as an outpatient to the Ortho offices, and began treatment with a course of oral Cephalexin with li kelihood for need of surgical debridement. He presented back to the ED with worsening pain, now asked to be admitted by medicine for treatment of a pyogenic flexor Tenosynovitis. Mr. Davey underwent an I&D of the index finger on the night of admission via Ortho, and remains on combination of Linezolid and Cefepime due to Cultures that show growth of GNR and Gram + Nat. His pain is uncontrolled currently. No overnight events reported. Remains afebrile. Exam Narrative Exam Narrative: General: Patient appears uncomfortable secondary to pain, AAOX3, NAD Upper Extremity: Right hand with index finger thickly bandaged, elevated in bed. Not cyanotic. Sensation intact. Psych: Normal mood and affect. Objective Objective Clinical Data: Abnormal lab results 10/19/19 10/19/19 10/19/19 Range/Units 06:20 06:20 06:20 RBC 4.40 L (4.50-6.00) m/cumm Hgb 13.3 L (13.5-17.5) g/dL Absolute Monocytes 1.37 H (0.11-0.7) k/cumm ESR 17 H (0-15) mm/hr Calcium 8.4 L (8.5-10.1) mg/dL C-Reactive Protein 1.76 H (0.0-0.3) mg/dL Vital Signs Temperature 37.0 C 10/19/19 11:28 Temperature Source Tympanic 10/19/19 11:28 Pulse 62 10/19/19 11:28 Pulse Rhythm Regular 10/19/19 10:12 Respiratory Rate 17 10/19/19 11:28 Respiratory Effort Non-Labored 10/19/19 10:12 Respiratory Depth Normal 10/19/19 10:12 Respiratory Pattern Normal 10/19/19 10:12 Blood Pressure 177/97 H 10/19/19 11:28 Pulse Oximetry 98 10/19/19 11:28 Respiratory End-tidal CO2 39 10/17/19 20:10 Oxygen Delivery Method Room Air 10/19/19 11:28 Oxygen Flow Rate 0 10/19/19 11:28 Pain Level 9 10/19/19 13:33 Intake & Output 10/18/19 10/19/19 10/19/19 23:59 11:59 23:59 Intake Total 2236 / 2636 720 / 720 Balance 2236 / 2636 720 / 720 Intake: IV 1516 / 1916 400 / 400 Oral 720 / 720 320 / 320 Other: Urine Appearance Clear Comment VOIDS INDEP AND FLUSHES. OOB TO BR AT LEAST 3 TIMES DURING NOC Stool Size Large Stool Characteristics Liquid Voiding Methods Toilet Laboratory Results WBC 10.73 k/cumm (4.4-10.8) 10/19/19 06:20 RBC 4.40 m/cumm (4.50-6.00) L 10/19/19 06:20 Hgb 13.3 g/dL (13.5-17.5) L 10/19/19 06:20 Hct 40.3 % (40.0-50.0) 10/19/19 06:20 MCV 91.6 fL (80-95) 10/19/19 06:20 MCH 30.2 pg (27.0-33.0) 10/19/19 06:20 MCHC 33.0 g/dL (32.0-36.0) 10/19/19 06:20 RDW 13.6 % (11.8-14.1) 10/19/19 06:20 Plt Count 281 x1000/uL (130-400) 10/19/19 06:20 MPV 9.3 fL (8.0-11.0) 10/19/19 06:20 Immature Gran % 0.3 10/19/19 06:20 Neutrophils % 54.3 10/19/19 06:20 Lymphocytes % 28.4 10/19/19 06:20 Monocytes % 12.8 10/19/19 06:20 Eosinophils % 3.8 10/19/19 06:20 Basophils % 0.4 10/19/19 06:20 Absolute Neutrophils 5.83 k/cumm (1.2-6.7) 10/19/19 06:20 Absolute Lymphocytes 3.05 k/cumm (1.2-3.4) 10/19/19 06:20 Absolute Monocytes 1.37 k/cumm (0.11-0.7) H 10/19/19 06:20 Absolute Eosinophils 0.41 k/cumm (0.0-0.7) 10/19/19 06:20 Absolute Basophils 0.04 k/cumm (0.0-0.2) 10/19/19 06:20 ESR 17 mm/hr (0-15) H 10/19/19 06:20 Sodium 141 mmol/L (136-145) 10/19/19 06:20 Potassium 4.0 mmol/L (3.5-5.1) 10/19/19 06:20 Chloride 106 mmol/L (98-107) 10/19/19 06:20 Carbon Dioxide 27.3 mmol/L (21.0-32.0) 10/19/19 06:20 Anion Gap 7.7 mmol/L (3-11) 10/19/19 06:20 BUN 10 mg/dL (7-18) 10/19/19 06:20 Creatinine 0.81 mg/dL (0.70-1.30) 10/19/19 06:20 Estimated GFR/1.73 m2 >= 60.00 (mL/min/1.73m2) 10/19/19 06:20 Glucose 87 mg/dL (74-106) 10/19/19 06:20 Calcium 8.4 mg/dL (8.5-10.1) L 10/19/19 06:20 Magnesium 2.0 mg/dL (1.8-2.4) 10/19/19 06:20 C-Reactive Protein 1.76 mg/dL (0.0-0.3) H 10/19/19 06:20
--- NOTE | 2019-10-19 15:04 | CHAPLAIN ---
Diallo was pleasant but was not interested in further conversation after I introduced myself and explained my role.
[2019-10-19 15:15] VITALS: BP 164/91; PULSE 61; RESP 16; TEMP 36.6; O2SAT 95
--- NOTE | 2019-10-19 17:36 | CMPROGNOTE_ITS ---
- If Service Date Differs Date of service: 10/19/19 Time of Service: 17:36 Care Management Progress Note S/O: Diallo was sitting up in bed when CM came to meet with him. He was very quiet and it difficult to engage him in conversation or make eye contact with him. Diallo stated he is in a lot of pain and that he is sick of it. He shared that he has been dealing with his infected finger for about a week. A: Diallo is a 44 year old man admitted to [facility] on 10/17/19 with tenosynovitis. P:Anticipate Diallo will return home with no additional services once medically cleared, unless technician terminal and repeater antibiotic therapy is needed.. He will have follow up appointments, as recommended. His will drive him home via private vehicle. CM will continue to follow.
[2019-10-19 20:03] VITALS: BP 153/82; PULSE 74; RESP 18; TEMP 36.4; O2SAT 97
[2019-10-19] MEDS: Nicotine 21 MG/24 HR PATCH TD (20:27)
[2019-10-19] MEDS: Acetaminophen 325 MG TAB 650 MG PO (22:08)
[2019-10-19] MEDS: LINEZOLID 600 MG/300 ML BAG IVPB (23:39)
[2019-10-20 00:05] VITALS: BP 137/66; PULSE 80; RESP 18; TEMP 36.4; O2SAT 97
[2019-10-20] MEDS: oxyCODONE 5 MG TAB PO ×4 (00:28→11:34)
[2019-10-20] MEDS: HYDROmorphone 2 MG/ML VIAL 1 MG IVP ×3 (02:30→09:43)
[2019-10-20 03:47] VITALS: BP 144/78; PULSE 64; RESP 18; TEMP 36.3; O2SAT 99
[2019-10-20] MEDS: Acetaminophen 325 MG TAB 650 MG PO ×2 (04:25→07:51)
[2019-10-20] MEDS: Normal Saline 500 ML 150 ML IV (05:56)
[2019-10-20] MEDS: Ketorolac 30 MG/ML VIAL IVP ×2 (05:56→11:35)
[2019-10-20] MEDS: CEFEPIME 2 GM in Normal Saline 100 ML IVPB (05:56)
[2019-10-20] MEDS: Normal Saline Flush 10 ML SYR IVP ×3 (05:57→11:35)
[2019-10-20 07:14] LABS: Abs Immature Grans 0.03 k/cumm (0.0-0.09); Absolute Basophil Count 0.05 k/cumm (0.0-0.2); Absolute Lymphocyte Count 4.18 k/cumm (1.2-3.4); Absolute Neutrophil Count 5.78 k/cumm (1.2-6.7); Basophils % 0.4; Eosinophils % 3.5; HCT 40.7 % (40.0-50.0); HGB 12.9 g/dL (13.5-17.5); Immature Grans % 0.3; Lymphocytes % 36.1; Mean Corp. HGB Concentration 31.7 g/dL (32.0-36.0); Mean Corpuscular Hemoglobin 29.1 pg (27.0-33.0); Mean Corpuscular Volume 91.9 fL (80-95); Mean Platelet Volume 9.1 fL (8.0-11.0); Monocytes % 9.8; Neutrophils % 49.9; Platelet Count 285 x1000/uL (130-400); RBC 4.43 m/cumm (4.50-6.00); RBC Distribution Width 13.7 % (11.8-14.1); White Blood Cell Count 11.58 k/cumm (4.4-10.8)
[2019-10-20 07:20] LABS: Anion Gap 10.5 mmol/L (3-11); BUN 13 mg/dL (7-18); CO2 23.5 mmol/L (21.0-32.0); CREATININE 0.87 mg/dL (0.70-1.30); Calcium 8.2 mg/dL (8.5-10.1); Chloride 107 mmol/L (98-107); Glucose 136 mg/dL (74-106); Magnesium 1.9 mg/dL (1.8-2.4); Potassium 3.2 mmol/L (3.5-5.1); Sodium 141 mmol/L (136-145)
[2019-10-20 07:21] LABS: Absolute Eosinophil Count 0.41 k/cumm (0.0-0.7); Absolute Monocyte Count 1.13 k/cumm (0.11-0.7)
[2019-10-20] MEDS: Lactobacillus Acidophilus CAP 1 CAP PO (07:49)
[2019-10-20] MEDS: Enoxaparin 40 MG/0.4 ML SYR SC (07:51)
[2019-10-20 07:52] VITALS: BP 136/81; PULSE 62; RESP 17; TEMP 37.1; O2SAT 97
[2019-10-20] MEDS: LINEZOLID 600 MG/300 ML BAG IVPB (09:43)
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
[2019-10-20] MEDS: Magnesium Oxide 400 MG TAB PO (11:17)
[2019-10-20] MEDS: Potassium Chloride 20 MEQ TABCR 40 MEQ PO (11:17)
[2019-10-20 12:15] VITALS: BP 150/76; PULSE 64; RESP 17; TEMP 36.7; O2SAT 97
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
--- NOTE | 2019-10-20 16:46 | PDOC.CMDIS ---
- If Service Date Differs Date of service: 10/20/19 Time of Service: 16:46 LACE Index Scoring Tool - Questions: Length of Stay (in days): 3 Acuity (Admit via E.D.?): Yes E.D. Visits: 5 - Answers: Total Score: 10 Risk of Readmission: High Risk Care Management Discharge Reason for Hospitalization: Suppurative tenosynovitis of flexor tendon of right hand Discharge Plan: Diallo will be discharged home with no new services. He will follow up with his surgeon and discharge plan of care. Diallo will transport via private vehicle with family. Patient/Family Education Needs: Discharge plan, limitations, follow up plan and Ask Me Three.
--- NOTE | 2019-10-20 17:04 | PGE_ITS ---
Date of Service Date of service: 10/20/19 Time of Service: 13:00 Assessment and Plan Assessment and plan (1) Felon of finger of right hand: Status: Acute Assessment and plan: as below (2) Suppurative tenosynovitis of flexor tendon of right hand: Status: Acute Assessment and plan: 44M POD#3 s/p Rt hand index finger I&D of chronic infectious flexor tenosynovitis and felon pain control improving- multimodal, wean narcotics strict elevation on pillows while in bed WBAT/ ROM as tolerated Dressing change done again today with Carlos Alberto WESLEY. Daily home dressing changes starting tomorrow. The patient and his were instructed on dressing change again today today. -Remove all bandages and Xeroform. May soak in 50-50 mixture of hydrogen peroxide and normal saline to aid in removal of Xeroform from fingertip. Swirl in 50-50 mixture for 5 to 10 minutes. Allowed to dry or dry with dry gauze prior to replacing Xeroform on the 3 incisions and fingertip, and cover with dry 4 x 4 gauze and wrapped the finger in the hand to secure the dressings with Kerlix. May switch to covering surgical sites with Band-Aids as soon as swelling and drainage allow, probably within 1 week. Transition to oral antibiotics as per sensitivity results which are mostly back today. Ciprofloxacin and doxycycline recommended by [facility] ID to Dr. Lora. Will need to check final tetracycline sensitivities. Hand therapy/ OT to restore full passive and active ROM as tolerated prevent c ontracture DVT ppx per primary team/ encourage OOB/ ambulate ad barron Care coordinated with admitting hospitalist. Patient is greatly improved today. Recommend discharge home on 1 week of oral antibiotics. I will see him in the office in 1 week for clinical reevaluation. Follow-up appointment arranged. Subjective Subjective Interval history since last seen: Significant pain at times but improved greatly since yesterday. Pain is localized to the fingertip. Demonstrates much better motion of the MCP, PIP and even DIPJ without any discomfort. Looks and feels better. Exam Const General: cooperative and comfortable (Only mildly uncomfortable with dressing change) Orientation: alert, awake and not confused Limitations: mental status not altered and no language barrier Resp Effort & Inspection: normal respiratory effort, able to speak in complete sentences, no audible wheezes and no grunting General: deferred Neuro General: alert, awake and oriented x3 Cognition: normal cognition Speech: speech normal Extrem Other: Right hand dressing largely c/d/i with minimal serosanguineous drainage. No purulence. No erythema about the incisions. Swelling greatly reduced. Operative sites the small openings from packing. Largely dry. Finger soaked in hydroperoxide normal saline mixture. Normal discomfort. Able to flex and extend the MCP, PIPJ, DIPJ to a very good extent. Tender to palpation about the fingertip still. No other areas of discomfort really. No proximal streaking No pain with ROM of the wrist of other digits Psych Appearance: grossly normal Mental Status: mental status grossly normal Speech and Movement: speech and movement normal Affect: normal affect Attitude: cooperative Objective Objective Clinical Data: Abnormal lab results 10/20/19 10/20/19 Range/Units 06:55 06:55 WBC 11.58 H (4.4-10.8) k/cumm RBC 4.43 L (4.50-6.00) m/cumm Hgb 12.9 L (13.5-17.5) g/dL MCHC 31.7 L (32.0-36.0) g/dL Absolute Lymphocytes 4.18 H (1.2-3.4) k/cumm Absolute Monocytes 1.13 H (0.11-0.7) k/cumm Potassium 3.2 L (3.5-5.1) mmol/L Glucose 136 H (74-106) mg/dL Calcium 8.2 L (8.5-10.1) mg/dL Vital Signs Temperature 98.1 F 10/20/19 12:15 Temperature Source Tympanic 10/20/19 12:15 Pulse 64 10/20/19 12:15 Pulse Rhythm Regular 10/20/19 04:58 Respiratory Rate 17 10/20/19 12:15 Respiratory Effort Non-Labored 10/20/19 10:46 Respiratory Depth Normal 10/20/19 10:46 Respiratory Pattern Normal 10/20/19 10:46 Blood Pressure 150/76 H 10/20/19 12:15 Pulse Oximetry 97 10/20/19 12:15 Respiratory End-tidal CO2 39 10/17/19 20:10 Oxygen Delivery Method Room Air 10/20/19 12:15 Oxygen Flow Rate 0 10/20/19 12:15 Pain Level 8 10/20/19 12:15 Intake & Output 10/19/19 10/20/19 10/20/19 23:59 11:59 23:59 Intake Total 200 / 920 310 / 310 Balance 200 / 920 310 / 310 Intake: IV 200 / 600 310 / 310 Other: Urine Appearance Clear Clear Comment patient has been independant to the bathroom Stool Size Large Stool Characteristics Liquid Laboratory Results WBC 11.58 k/cumm (4.4-10.8) H 10/20/19 06:55 RBC 4.43 m/cumm (4.50-6.00) L 10/20/19 06:55 Hgb 12.9 g/dL (13.5-17.5) L 10/20/19 06:55 Hct 40.7 % (40.0-50.0) 10/20/19 06:55 MCV 91.9 fL (80-95) 10/20/19 06:55 MCH 29.1 pg (27.0-33.0) 10/20/19 06:55 MCHC 31.7 g/dL (32.0-36.0) L 10/20/19 06:55 RDW 13.7 % (11.8-14.1) 10/20/19 06:55 Plt Count 285 x1000/uL (130-400) 10/20/19 06:55 MPV 9.1 fL (8.0-11.0) 10/20/19 06:55 Immature Gran % 0.3 10/20/19 06:55 Neutrophils % 49.9 10/20/19 06:55 Lymphocytes % 36.1 10/20/19 06:55 Monocytes % 9.8 10/20/19 06:55 Eosinophils % 3.5 10/20/19 06:55 Basophils % 0.4 10/20/19 06:55 Absolute Neutrophils 5.78 k/cumm (1.2-6.7) 10/20/19 06:55 Absolute Lymphocytes 4.18 k/cumm (1.2-3.4) H 10/20/19 06:55 Absolute Monocytes 1.13 k/cumm (0.11-0.7) H 10/20/19 06:55 Absolute Eosinophils 0.41 k/cumm (0.0-0.7) 10/20/19 06:55 Absolute Basophils 0.05 k/cumm (0.0-0.2) 10/20/19 06:55 ESR 17 mm/hr (0-15) H 10/19/19 06:20 Sodium 141 mmol/L (136-145) 10/20/19 06:55 Potassium 3.2 mmol/L (3.5-5.1) L 10/20/19 06:55 Chloride 107 mmol/L (98-107) 10/20/19 06:55 Carbon Dioxide 23.5 mmol/L (21.0-32.0) 10/20/19 06:55 Anion Gap 10.5 mmol/L (3-11) 10/20/19 06:55 BUN 13 mg/dL (7-18) 10/20/19 06:55 Creatinine 0.87 mg/dL (0.70-1.30) 10/20/19 06:55 Estimated GFR/1.73 m2 >= 60.00 (mL/min/1.73m2) 10/20/19 06:55 Glucose 136 mg/dL (74-106) H 10/20/19 06:55 Calcium 8.2 mg/dL (8.5-10.1) L 10/20/19 06:55 Magnesium 1.9 mg/dL (1.8-2.4) 10/20/19 06:55 C-Reactive Protein 1.76 mg/dL (0.0-0.3) H 10/19/19 06:20
== END 2019-10-20 14:43 | disposition home or self-care (01) | DRG 513 ==
LOC: ER 18:36 → MS 20:58
PROVIDERS: Physician Assistant; Student in an Organized Health Care Education/Training Program; Admitting Provider Internal Medicine; Emergency Provider Student in an Organized Health Care Education/Training Program; PCP General Practice; Visit Provider Internal Medicine
PROC: 0LB70ZZ Excision of Right Hand Tendon, Open Approach (ICD-10-PCS; CPT 11043; principal; 2019-10-17 18:05)
DX: M65.141 Other infective (teno)synovitis, right hand (principal); Z16.19 Resistance to other specified beta lactam antibiotics; Z16.11 Resistance to penicillins; Z16.29 Resistance to other single specified antibiotic; L03.011 Cellulitis of right finger; B95.61 Methicillin susceptible Staphylococcus aureus infection as the cause of diseases classified elsewhere; B95.7 Other staphylococcus as the cause of diseases classified elsewhere; B96.89 Other specified bacterial agents as the cause of diseases classified elsewhere; L27.1 Localized skin eruption due to drugs and medicaments taken internally; T36.8X5A Adverse effect of other systemic antibiotics, initial encounter; F90.9 Attention-deficit hyperactivity disorder, unspecified type; Z87.440 Personal history of urinary (tract) infections; F17.210 Nicotine dependence, cigarettes, uncomplicated
CPT/HCPCS: 11043; 26011; 11760; 36415; 80048; 85652; 87077; 96365; 96367; 96375; 96376; 97110; 99222; 99232; 99239; 99255; 99285; J1650; NC; 83735; 85025; 86140; 87070; 87075; 87186; 87205; 99284; J1885; J2020; J2405; J3010; J3490

== ENCOUNTER 2019-12-12 14:04 | Emergency (ER) | payer OTHER, SELFPAY ==
[2019-12-12 14:07] VITALS: BP 143/69; PULSE 74; TEMP 36.6; O2SAT 98
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
[2019-12-12 14:44] VITALS: BP 166/72; PULSE 72; RESP 16; O2SAT 98
== END 2019-12-12 14:43 | disposition home or self-care (01) ==
PROVIDERS: Emergency Provider Emergency Medicine; PCP General Practice
DX: S61.412A Laceration without foreign body of left hand, initial encounter (principal); W26.0XXA Contact with knife, initial encounter
CPT/HCPCS: 12001

== ENCOUNTER 2022-09-11 12:23 | Emergency (ER) | payer OTHER, SELFPAY ==
[2022-09-11 12:26] VITALS: BP 177/112; PULSE 76; RESP 18; TEMP 36.2; O2SAT 96
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
== END 2022-09-11 12:44 | disposition home or self-care (01) ==
PROVIDERS: Emergency Provider Physician Assistant; PCP General Practice
DX: K04.7 Periapical abscess without sinus (principal)

== ENCOUNTER 2023-01-12 13:59 | Emergency (ER) | payer OTHER, SELFPAY ==
[2023-01-12 14:04] VITALS: BP 168/95; PULSE 69; RESP 18; TEMP 36.4; O2SAT 95
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
[2023-01-12] MEDS: Benzocaine 20% Gel 30 GM JAR MM (14:34)
[2023-01-12] MEDS: Clindamycin 150 MG CAP 450 MG PO (14:35)
[2023-01-12] MEDS: Clindamycin 150 MG CAP, 12 CAPS/BTL 450 MG PO (14:35)
== END 2023-01-12 14:44 | disposition home or self-care (01) ==
PROVIDERS: Emergency Provider Registered Nurse Emergency; PCP General Practice
DX: K02.9 Dental caries, unspecified (principal); K03.81 Cracked tooth
CPT/HCPCS: 99283

== ENCOUNTER 2023-01-14 20:23 | Emergency (ER) | payer OTHER, SELFPAY ==
[2023-01-14] VITALS (13 sets, daily range): BP systolic 167–178; BP diastolic 92–99; PULSE 64–106; RESP 14–26; TEMP 37; O2SAT 88–99
--- NOTE | 2023-01-14 20:15 | RT.EKG_ITS ---
APPROVED REPORT Exam: Resting ECG Reason for Exam: chest pain Patient Location: E HR:97 bpm ECG Measurements Heart Rate 97 AXIS WA 139 P 72 QRSd 99 QRS -28 QT 357 T 63 QTc 453 Conclusion Sinus rhythm. Probable left atrial enlargement Nonspecific st changes
--- NOTE | 2023-01-14 20:46 | DI.CT_ITS ---
Exam(s) CT CHEST PE ABD PELVIS W EXAM: CT CHEST PE ABD PELVIS W CLINICAL HISTORY: left sided CP/upper abdominal pain, hemoptysis. TECHNIQUE: Imaging Protocol: Axial CT angiography was performed with multi-slice acquisition and mu lti-planar and/or 3D reconstructions. CONTRAST MATERIAL: Intravenous: Omnipaque 350contrast volume:100 mL COMPARISON: CT ABD PELVIS WO CONTRAST from 04/07/2017 FINDINGS: CHEST: Tracheobronchial tree: Patent where visualized. Pulmonary parenchyma: No consolidation or dominant measurable mass. No architectural distortion. Pulmonary Arteries: No evidence of filling defect to suggest pulmonary emboli. Mediastinum and Starr: No dominant adenopathy or fluid collection. The esophagus is unremarkable. Visualized thyroid gland: Unremarkable. Pleura: No effusion or pneumothorax. Heart: The heart is not dilated. No coronary artery calcifications are seen. No pericardial effusion. Aorta: Thoracic aorta non-dilated. No evidence of dissection. Bones: Within normal limits for the patient's age. Soft tissues: Unremarkable. ABDOMEN: Liver: Normal density. No measurable mass. Portal, Superior Mesenteric, and Splenic Veins: Unremarkable. Gallbladder and Biliary Tract: No radiodense calculus or dilation. Pancreas: Normal density, no abnormal calcifications or inflammatory process. Spleen: There is a calcified granuloma in the spleen which is otherwise unremarkable. Adrenals: No masses seen. Kidneys: Normal size, contour and axis. There is bilateral nephrolithiasis. No hydronephrosis. No m asses seen. Abdominal Aorta: Abdominal portion non-dilated. Minimal atherosclerosis. Bowel: No obstruction or bowel wall thickening. Appendix is unremarkable. Peritoneal Cavity: No ascites, collection or mesenteric inflammatory response. No free air. Lymph Nodes: Within normal limits. Bones: Within normal limits for the patient's age. There is an intramedullary hemanth seen in the left f emur. Soft Tissues: Unremarkable. PELVIS: Bladder: There is mild diffuse thickening of the wall of the urinary bladder. This may be due to und erdistention. Reproductive Organs: Unremarkable as visualized. Lymph Nodes: Within normal limits. Bones: Within normal limits. IMPRESSION: 1. No evidence pulmonary embolism, thoracic aortic dissection or aneurysm. 2. No acute pulmonary process. 3. No acute abdominal or pelvic process. RADIATION DOSE DELIVERED: 1,534.14mGy.cm Total DLP DATA REPOSITORY: All CT scans at this facility are submitted to the National Radiology Data Registry (NRDR) Dose Index Registry (DIR) with the [employer] (ACR). RADIATION OPTIMIZATION: All CT scans at this facility use at least one of these dose optimization te chniques: automated exposure control; mA and/or kV adjustment per patient size (includes targeted exa ms where dose is matched to clinical indication); or iterative reconstruction.
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
[2023-01-14 21:09] LABS: Source Nasal/Nares
[2023-01-14 21:11] LABS: Abs Immature Grans 0.07 10^3/uL (0.0-0.06); Absolute Basophil Count 0.05 10^3/uL (0.0-0.2); Absolute Eosinophil Count 0.03 10^3/uL (0.0-0.7); Absolute Lymphocyte Count 3.56 10^3/uL (1.2-3.4); Absolute Monocyte Count 1.29 10^3/uL (0.1-0.8); Absolute Neutrophil Count 11.33 10^3/uL (1.2-6.7); Basophils % 0.3; Eosinophils % 0.2; HCT 47.7 % (40.0-50.0); HGB 15.6 g/dL (13.5-17.5); Immature Grans % 0.4; Lymphocytes % 21.8; MCH 28.8 pg (27.0-33.0); MCHC 32.7 % (32.0-36.0); MCV 88 fL (80-95); MPV 9.2 fL (8.0-11.0); Monocytes % 7.9; Neutrophils % 69.4; Platelet Count 353 10^3/uL (130-400); RBC 5.41 10^6/uL (4.36-5.78); RDW 13.1 % (11.8-14.1); RDW-SD 42.4 fL; WBC 16.33 10^3/uL (4.4-10.8)
[2023-01-14] MEDS: Omnipaque 350 MG/ML 100 ML BTL IJ (21:13)
[2023-01-14] MEDS: Normal Saline Flush 10 ML SYR IVP (21:14)
[2023-01-14] MEDS: Normal Saline - Diluent 50 ML VIAL IJ (21:14)
[2023-01-14 21:29] LABS: ALT 46 U/L (16-63); AST 31 U/L (15-37); Albumin 4.2 g/dL (3.4-5.0); Alkaline Phosphatase 113 U/L (46-116); Anion Gap 10.2 mmol/L (3-11); BUN 20 mg/dL (7-18); Bilirubin, Total 0.3 mg/dL (0.2-1.0); CO2 28.8 mmol/L (21.0-32.0); CREATININE 1.3 mg/dL (0.70-1.30); Calcium 9.8 mg/dL (8.5-10.1); Chloride 101 mmol/L (98-107); Estimated GFR 68.19 (mL/min/1.73m2); Glucose 95 mg/dL (74-106); Lipase 19 U/L (16-77); Magnesium 2.1 mg/dL (1.8-2.4); Potassium 3.3 mmol/L (3.5-5.1); Sodium 140 mmol/L (136-145); Total Protein 8.9 g/dL (6.4-8.2); Troponin I < 50 ng/L (<or=60)
[2023-01-14] MEDS: Lactated Ringers 1,000 ML 1000 ML IV (21:36)
[2023-01-14 21:41] LABS: COVID-19 PCR Negative (Negative)
--- NOTE | 2023-01-14 21:53 | DI.VRAD_ITS ---
PROCEDURE INFORMATION: Exam: CTA Chest With Contrast Exam date and time: 01/14/2023 9:16 PM Age: 47 years old Clinical indication: Abdominal pain; Localized; Left-sided; Prior surgery; Surgery date: 6+ months; Surgery type: L femur orif; Patient HX: Left sided chest pain, upper abd pain, hemoptysis TECHNIQUE: Imaging protocol: Computed tomographic angiography of the chest with contrast. 3D rendering (Not supervised by radiologist): MIP and/or 3D reconstructed images were created by the technologist. Radiation optimization: All CT scans at this facility use at least one of these dose optimization techniques: automated exposure control; mA and/or kV adjustment per patient size (includes targeted exams where dose is matched to clinical indication); or iterative reconstruction. Contrast material: [id number]; Contrast volume: 100 ml; Contrast route: INTRAVENOUS (IV); COMPARISON: CR CHEST 2 VIEWS PA,LAT 06/03/2018 9:24 AM FINDINGS: Pulmonary arteries: Normal. No pulmonary emboli. Aorta: Unremarkable. No aortic aneurysm. No aortic dissection. Lungs: Unremarkable. No consolidation. No masses. Pleural spaces: Unremarkable. No pneumothorax. No pleural effusion. Heart: Unremarkable. No cardiomegaly. No pericardial effusion. Lymph nodes: Unremarkable. No enlarged lymph nodes. Bones/joints: Unremarkable. No acute fracture. Soft tissues: Unremarkable. IMPRESSION: No acute findings. PROCEDURE INFORMATION: Exam: CT Abdomen And Pelvis With Contrast Exam date and time: 01/14/2023 9:16 PM Age: 47 years old Clinical indication: Abdominal pain; Localized; Left-sided; Prior surgery; Surgery date: 6+ months; Surgery type: L femur orif; Patient HX: Left sided chest pain, upper abd pain, hemoptysis TECHNIQUE: Imaging protocol: Computed tomography of the abdomen and pelvis with contrast. Radiation optimization: All CT scans at this facility use at least one of these dose optimization techniques: automated exposure control; mA and/or kV adjustment per patient size (includes targeted exams where dose is matched to clinical indication); or iterative reconstruction. Contrast material: [id number]; Contrast volume: 100 ml; Contrast route: INTRAVENOUS (IV); COMPARISON: CT ABD PELVIS WO CONTRAST 04/07/2017 1:20 PM FINDINGS: Liver: Normal. No mass. Gallbladder and bile ducts: Normal. No calcified stones. No ductal dilation. Pancreas: Normal. No ductal dilation. Spleen: Normal. No splenomegaly. Adrenal glands: Normal. No mass. Kidneys and ureters: Mild left renal scarring No hydronephrosis. Stomach and bowel: Unremarkable. No obstruction. No mucosal thickening. Appendix: No evidence of appendicitis. Intraperitoneal space: Unremarkable. No free air. No significant fluid collection. Vasculature: Unremarkable. No abdominal aortic aneurysm. Lymph nodes: Unremarkable. No enlarged lymph nodes. Urinary bladder: Unremarkable as visualized. Reproductive: Unremarkable as visualized. Bones/joints: Left femoral hemanth partially visualized. No acute fracture. Mild degenerative changes in the spine Soft tissues: Unremarkable. IMPRESSION: No acute findings. Dictated and Authenticated by: Larry Sprague MD. Ordering:MELANIE Perez MD
[2023-01-14] MEDS: POTASSIUM CHLORIDE 20 MEQ, POTASSIUM CHLORIDE 10 MEQ 30 MEQ PO (22:03)
[2023-01-14 22:04] LABS: ESR 40 mm/hr (0-15)
[2023-01-14 22:10] LABS: C-Reactive Protein 0.89 mg/dL (0.0-0.3)
--- NOTE | 2023-01-14 22:13 | NUR.NOTE ---
Referral to Care Management to establish pcp radha for chest pain, elevated blood pressure.Nursing Note:
--- NOTE | 2023-01-15 10:01 | PDOC.ERCMACT ---
- If Service Date Differs Date of service: 01/15/23 Time of Service: 10:01 Care Management Activity Note Diallo is seen in the ED for chest pain and hypertension. At the request of ED provider, MAGALY coordinates a referral to Crystal Molina NP, of [facility], t-doc, to assist Diallo in obtaining a follow up appointment and in establishing care with a PCP. He has CBA for insurance.
== END 2023-01-14 22:13 | disposition home or self-care (01) ==
PROVIDERS: Emergency Provider Physician Assistant; PCP General Practice
DX: R07.81 Pleurodynia (principal); R04.2 Hemoptysis; D72.829 Elevated white blood cell count, unspecified; R03.0 Elevated blood-pressure reading, without diagnosis of hypertension; R05.3 Chronic cough; R21 Rash and other nonspecific skin eruption; R00.0 Tachycardia, unspecified; F17.210 Nicotine dependence, cigarettes, uncomplicated; Z86.718 Personal history of other venous thrombosis and embolism; Z20.822 Contact with and (suspected) exposure to COVID-19
CPT/HCPCS: 71275; 74177; 80053; 83690; 85652; 87635; 93005; 99285; 83735; 84484; 85025; 86140; 93010; J3490

== ENCOUNTER 2023-09-06 04:38 | Outpatient (CLI) | payer OTHER, SELFPAY ==
[2023-09-06 13:35] LABS: HCT 43.8 % (40.0-50.0); HGB 14.6 g/dL (13.5-17.5); MCH 29.5 pg (27.0-33.0); MCHC 33.3 % (32.0-36.0); MCV 89 fL (80-95); MPV 8.8 fL (8.0-11.0); Platelet Count 322 10^3/uL (130-400); RBC 4.95 10^6/uL (4.36-5.78); RDW 12.8 % (11.8-14.1); RDW-SD 41.5 fL; WBC 10.15 10^3/uL (4.4-10.8)
[2023-09-06 14:02] LABS: Hemoglobin A1C 5.5 % (<5.7)
[2023-09-06 14:12] LABS: ALT 39 U/L (16-63); AST 30 U/L (15-37); Albumin 3.6 g/dL (3.4-5.0); Alkaline Phosphatase 113 U/L (46-116); Anion Gap 7.9 mmol/L (3-11); BUN 15 mg/dL (7-18); Bilirubin, Total 0.2 mg/dL (0.2-1.0); CO2 27.1 mmol/L (21.0-32.0); Calcium 9.6 mg/dL (8.5-10.1); Calculated LDL 112 mg/dL (<100); Chloride 103 mmol/L (98-107); Cholesterol 172 mg/dL (<200); Estimated GFR 92.84 (mL/min/1.73m2); Glucose 141 mg/dL (74-106); HDL Cholesterol 46 mg/dL (40-60); Potassium 4.2 mmol/L (3.5-5.1); Sodium 138 mmol/L (136-145); TSH (W/Ref FT4) 0.89 uIU/mL (0.36-3.74); Total Protein 8.5 g/dL (6.4-8.2); Triglyceride 72 mg/dL (<150)
== END 2023-09-06 04:39 | disposition home or self-care (01) ==
LOC: LBO 04:39
PROVIDERS: PCP Nurse Practitioner Family; Visit Provider Nurse Practitioner Family
DX: F10.10 Alcohol abuse, uncomplicated (principal); Z72.0 Tobacco use
CPT/HCPCS: 36415; 80053; 80061; 85027; 83036; 84443

== ENCOUNTER 2023-09-13 00:48 | Outpatient (CLI) | payer OTHER, SELFPAY ==
--- NOTE | 2023-09-13 08:15 | DI.MRI_ITS ---
Exam(s) MR BRAIN WO EXAM: MR BRAIN WO CLINICAL HISTORY: double vision, alcohol/tobacco abuse, Z72.0, F10.10 TECHNIQUE: Multiplanar multisequence MRI of the brain was performed. COMPARISON: No exams were available for comparison FINDINGS: CEREBRAL PARENCHYMA: There is no evidence of intracranial hemorrhage, mass effect, or shift of midline structures. There are no extra-axial fluid collections. Ventricular size is upper normal. There is no significant signal abnormality in the cerebellar hemispheres nor within the thalami and p eriventricular white matter. However, there is relatively symmetrical signal abnormality in both aileen es of the gerard, not associated with hemorrhage, surrounding edema nor restricted diffusion. There is no abnormal signal abnormality in the periventricular white matter. There is no significant focal signal abnormality evident on diffusion imaging to suggest acute ischem ic event. PITUITARY GLAND: No mass nor parasellar abnormality. No obvious abnormality in the cavernous sinuses. FLOW VOIDS: The expected flow void are noted. No evidence of obvious aneurysm nor obvious vascular ma lformation. PARANASAL SINUSES: There is a post inflammatory retention cyst in the left maxillary sinus, not assoc iated with fluid level. This measures 1.5 x 1.6 cm. ORBITS: No obvious findings. IMPRESSION: There is signal abnormality which appears to be restricted to both sides of the gerard. There is no re stricted diffusion at this level. No hemorrhage. No vascular malformation. Correlation with any cl inical findings of central pontine myelinolysis recommended. DATA REPOSITORY:
== END 2023-09-13 01:08 ==
LOC: DI 00:48
PROVIDERS: PCP Nurse Practitioner Family; Visit Provider Nurse Practitioner Family
DX: F10.10 Alcohol abuse, uncomplicated (principal); Z72.0 Tobacco use; H53.2 Diplopia
CPT/HCPCS: 70551

== ENCOUNTER 2024-01-18 02:53 | Emergency (ER) | payer OTHER, SELFPAY ==
[2024-01-18 03:18] VITALS: BP 182/101; PULSE 85; RESP 16; TEMP 36.8; O2SAT 95
== END 2024-01-18 03:58 | disposition left against medical advice (07) ==
PROVIDERS: PCP Nurse Practitioner Family
DX: Z53.21 Procedure and treatment not carried out due to patient leaving prior to being seen by health care provider (principal)

== ENCOUNTER 2024-04-29 07:43 | Emergency (ER) | payer OTHER, SELFPAY ==
[2024-04-29 07:53] VITALS: BP 157/92; PULSE 99; RESP 18; TEMP 36.8; O2SAT 97
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
== END 2024-04-29 08:44 | disposition home or self-care (01) ==
PROVIDERS: Emergency Provider Physician Assistant; PCP Nurse Practitioner Family
DX: L02.414 Cutaneous abscess of left upper limb (principal); L03.114 Cellulitis of left upper limb; F11.10 Opioid abuse, uncomplicated; F17.210 Nicotine dependence, cigarettes, uncomplicated
CPT/HCPCS: 99283

== ENCOUNTER 2025-04-13 04:29 | Emergency (ER) | payer SELFPAY ==
--- NOTE | 2025-04-13 04:30 | DI.CT_ITS ---
Exam(s) CT HEAD CERVICAL SPINE WO EXAM: CT HEAD CERVICAL SPINE WO CLINICAL HISTORY: fall, hit left posterior head on toolbox. TECHNIQUE: Imaging Protocol: Axial computed tomography images with coronal and sagittal reformatted images were created and reviewed COMPARISON: MR MR BRAIN WO from 09/13/2023 FINDINGS: Head CT Ventricles and Extra axial spaces: Mildly prominent lateral ventricles, unchanged from prior MRI. No significant atrophy. Hemorrhage: None. Cerebral parenchyma: No evidence of mass or acute infarct. Midline shift: None. Brainstem/Cerebellum: Normal. Calvarium: Normal. Visualized Paranasal sinuses/Mastoids: Mucosal thickening of the left maxillary sinus. Soft tissues: Unremarkable. Cervical Spine CT The exam is limited by motion. BONES: Vertebral body heights are maintained. Straightening of normal cervical lordosis may represent spasm and/or secondary to degenerative changes. There is no evidence of acute fracture. Degenerative disc changes and facet degenerative changes are seen, greatest at C4-5 and C5-6 where th ere is neural foraminal narrowing bilaterally.. SOFT TISSUES: No paraspinal hematoma. The airway appears intact. No pneumothorax is seen at the lung apices. Emphysematous changes. IMPRESSION: Head CT: No acute abnormality. C-spine CT: Exam limited by motion. Degenerative changes, no acute abnormality. RADIATION DOSE DELIVERED: 1,654.21mGy.cm Total DLP DATA REPOSITORY: All CT scans at this facility are submitted to the National Radiology Data Registry (NRDR) Dose Index Registry (DIR) with the [employer] (A[employer]). RADIATION OPTIMIZATION: All CT scans at this facility use at least one of these dose optimization te chniques: automated exposure control; mA and/or kV adjustment per patient size (includes targeted exa ms where dose is matched to clinical indication); or iterative reconstruction.
[2025-04-13 04:31] VITALS: BP 139/76; PULSE 63; RESP 14; TEMP 36.4
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
--- NOTE | 2025-04-13 05:04 | NUR.NOTE ---
Nursing Note: Pt was placed on o2 to help main sats. Pts took o2 off and that he does not like it and does not want to wear it.
--- NOTE | 2025-04-13 05:25 | DI.VRAD_ITS ---
PROCEDURE INFORMATION: Exam: CT Head Without Contrast Exam date and time: 04/13/2025 4:50 AM Age: 49 years old Clinical indication: Injury or trauma; Blunt trauma (contusions or hematomas); Consciousness not specified; Injury date: 04/12/25; Injury details: PT states hit head on tool box last night TECHNIQUE: Imaging protocol: Computed tomography of the head without contrast. Radiation optimization: All CT scans at this facility use at least one of these dose optimization techniques: automated exposure control; mA and/or kV adjustment per patient size (includes targeted exams where dose is matched to clinical indication); or iterative reconstruction. COMPARISON: No relevant prior studies are available for comparison. FINDINGS: Brain: No intracranial hemorrhage appreciated. No significant focal mass effect or significant midline shift. Cerebral ventricles: Mildly prominent lateral ventricles. This is of indeterminate chronicity. Hydrocephalus cannot be excluded. Follow-up if clinically warranted. Paranasal sinuses: Mucosal thickening in the left maxillary sinus. Mastoid air cells: No mastoid effusion. Bones: No acute cranial vault fracture seen. Soft tissues: No acute findings. IMPRESSION: 1. No intracranial sequelae of trauma appreciated. 2. Findings as above. 3. Additional studies dictated separately. PROCEDURE INFORMATION: Exam: CT Cervical Spine Without Contrast Exam date and time: 04/13/2025 4:50 AM Age: 49 years old Clinical indication: Injury or trauma; Blunt trauma (contusions or hematomas); Consciousness not specified; Injury date: 04/12/25; Injury details: PT states hit head on tool box last night TECHNIQUE: Imaging protocol: Computed tomography of the cervical spine without contrast. Radiation optimization: All CT scans at this facility use at least one of these dose optimization techniques: automated exposure control; mA and/or kV adjustment per patient size (includes targeted exams where dose is matched to clinical indication); or iterative reconstruction. COMPARISON: No relevant prior studies are available for comparison. FINDINGS: Limitations: Motion artifact degrades image quality. Bones: No acute cervical spine fracture identified. Straightening of the normal cervical lordosis may reflect positioning or muscle spasm; correlate clinically. Erosions in the facet joints at C3-C4 [id number]. Multilevel degenerative changes. At C2-C3 there is mild right and moderate left foraminal narrowing. At C3-C4 there is marked bilateral foraminal narrowing. At C4-C5 there is marked bilateral foraminal narrowing and mild canal narrowing. At C5-C6 there is marked bilateral foraminal narrowing and mild canal narrowing. At C6-C7 there is marked bilateral foraminal narrowing. Lungs: No acute findings. Lymph nodes: Bilateral cervical lymph nodes. Soft tissues: See Bones finding. IMPRESSION: 1. No acute cervical spine fracture seen, within the limitations noted above. 2. Additional studies dictated separately. Dictated and Authenticated by: Andie Macario MD. Orderin Neno Bella MD
== END 2025-04-13 05:40 | disposition home or self-care (01) ==
LOC: ER 05:47
PROVIDERS: Emergency Provider Student in an Organized Health Care Education/Training Program; PCP Nurse Practitioner Family
DX: S06.0X0A Concussion without loss of consciousness, initial encounter (principal); S00.03XA Contusion of scalp, initial encounter; I10 Essential (primary) hypertension; F17.210 Nicotine dependence, cigarettes, uncomplicated; W01.118A Fall on same level from slipping, tripping and stumbling with subsequent striking against other sharp object, initial encounter; Y93.89 Activity, other specified
CPT/HCPCS: 99284; 70450; 72125

== ENCOUNTER 2025-04-18 04:09 | Emergency (ER) | payer SELFPAY ==
[2025-04-18 04:17] VITALS: BP 146/95; PULSE 77; RESP 18; TEMP 36.5; O2SAT 94
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
[2025-04-18] MEDS: Mupirocin 2% Oint. 22 GM TUBE TP (04:40)
[2025-04-18] MEDS: Clindamycin 150 MG CAP, 12 CAPS/BTL 450 MG PO (04:40)
== END 2025-04-18 04:47 | disposition home or self-care (01) ==
PROVIDERS: Emergency Provider Student in an Organized Health Care Education/Training Program; PCP Nurse Practitioner Family
DX: L02.831 Carbuncle of head [any part, except face] (principal); I10 Essential (primary) hypertension; F17.210 Nicotine dependence, cigarettes, uncomplicated
CPT/HCPCS: 99283

== ENCOUNTER 2025-07-31 15:05 | Emergency (ER) | payer SELFPAY ==
[2025-07-31 15:07] VITALS: BP 198/113; PULSE 80; RESP 16; TEMP 36.7; O2SAT 92
[2025-07-31 15:18] VITALS: BP 198/113; PULSE 80; RESP 16; TEMP 36.7; O2SAT 92
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
[2025-07-31] MEDS: Erythromycin Ophth Oint 3.5 GM TUBE OD (16:15)
[2025-07-31 16:22] VITALS: BP 178/116; PULSE 87; RESP 16; TEMP 37; O2SAT 93
== END 2025-07-31 16:24 | disposition home or self-care (01) ==
PROVIDERS: Emergency Provider Emergency Medicine Emergency Medical Services
DX: H10.31 Unspecified acute conjunctivitis, right eye (principal); I10 Essential (primary) hypertension
CPT/HCPCS: 99283 ×2

== ENCOUNTER 2025-11-06 05:15 | Emergency (ER) | payer SELFPAY ==
[2025-11-06] VITALS (9 sets, daily range): BP systolic 136–149; BP diastolic 68–90; PULSE 69–92; RESP 11–16; TEMP 36.7–37.3; O2SAT 94–96
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
[2025-11-06] MEDS: Ketorolac 15 MG/ML VIAL IVP (06:27)
[2025-11-06] MEDS: CLINDAMYCIN 600 MG/50 ML BAG 100 MG IVPB (06:28)
[2025-11-06 06:31] LABS: Abs Immature Grans 0.04 10^3/uL (0.0-0.06); HCT 38.1 % (40.0-50.0); HGB 12.5 g/dL (13.5-17.5); Immature Grans % 0.3 %; MCH 28.8 pg (27.0-33.0); MCHC 32.8 % (32.0-36.0); MCV 88 fL (80-95); MPV 9.0 fL (8.0-11.0); Platelet Count 285 10^3/uL (130-400); RBC 4.34 10^6/uL (4.36-5.78); RDW 13.1 % (11.8-14.1); RDW-SD 42.3 fL; WBC 12.30 10^3/uL (4.4-10.8)
[2025-11-06 06:50] LABS: Magnesium 1.8 mg/dL (1.6-2.6)
[2025-11-06 06:51] LABS: ESR 31 mm/hr (0-15)
[2025-11-06 06:52] LABS: ALT 30 U/L (10-49); AST 30 U/L (<34); Albumin 3.7 g/dL (3.2-5.0); Alkaline Phosphatase 89 U/L (46-116); Anion Gap 5.6 mmol/L (3-11); BUN 8 mg/dL (9-23); Bilirubin, Total 0.7 mg/dL (0.2-1.2); CO2 31.4 mmol/L (20.0-31.0); Calcium 8.6 mg/dL (8.3-10.6); Chloride 101 mmol/L (98-107); Glucose 173 mg/dL (74-106); Potassium 3.5 mmol/L (3.5-5.1); Sodium 138 mmol/L (136-145); Total Protein 7.0 g/dL (5.7-8.2)
[2025-11-06 07:17] LABS: C-Reactive Protein 6.56 mg/dL (<=0.50)
[2025-11-06] MEDS: Clindamycin 150 MG CAP, 12 CAPS/BTL 450 MG PO (07:39)
== END 2025-11-06 07:44 | disposition home or self-care (01) ==
PROVIDERS: Emergency Provider Student in an Organized Health Care Education/Training Program
DX: L03.116 Cellulitis of left lower limb (principal); I10 Essential (primary) hypertension; F17.210 Nicotine dependence, cigarettes, uncomplicated
CPT/HCPCS: 36415; 76882; 80053; 85652; 87040; 96365; 96375; 99284; 83735; 85025; 86140; J0737; J1885

== ENCOUNTER 2025-11-16 21:03 | Emergency (ER) | payer SELFPAY ==
[2025-11-16 21:21] VITALS: BP 133/90; PULSE 81; RESP 16; TEMP 37.1; O2SAT 97
[2025-11-16 21:27] VITALS: BP 133/90; PULSE 81; RESP 16; TEMP 37.1; O2SAT 97
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
[2025-11-16] MEDS: Cephalexin 500 MG CAP, 2 CAPS/BTL PO (22:10)
[2025-11-16] MEDS: Sulfameth/Trimeth DS, 2 TABS/BTL 1 TAB PO (22:10)
[2025-11-16] MEDS: Cephalexin 500 MG CAP PO (22:10)
[2025-11-16] MEDS: Sulfameth/Trimeth DS TAB 1 TAB PO (22:10)
== END 2025-11-16 22:13 | disposition home or self-care (01) ==
PROVIDERS: Emergency Provider Registered Nurse Emergency
DX: L03.116 Cellulitis of left lower limb (principal); S81.802A Unspecified open wound, left lower leg, initial encounter; X58.XXXA Exposure to other specified factors, initial encounter
CPT/HCPCS: 99284; 99283